=== PATIENT | female | born 1950 | race Caucasian/White ===

== ENCOUNTER 2019-11-16 13:38 | Observation (INO) | payer MEDICARE, MEDICAID, SELFPAY ==
[2019-11-16] VITALS (14 sets, daily range): BP systolic 81–132; BP diastolic 39–68; PULSE 60–86; RESP 15–18; TEMP 36.8–36.9; O2SAT 94–100
--- NOTE | 2019-11-16 13:58 | CT_ITS ---
PROCEDURE: CT HEAD/BRAIN WO CON CLINICAL INDICATION: ams Altered mental status, altered level of consciousness, confusion, disorientation COMPARISON: CT HDWO CT HEAD W/O CONTRAST from 10/18/2014 TECHNIQUE: Axial images obtained. All CT scans at the facility use one or more dose reduction, viz: automated exposure control, ma/kV adjustment per patient size (including targeted exams where dose is matched to indication, i.e. head), or iterative reconstruction technique. FINDINGS: No midline shift, mass effect, intracranial hemorrhage, hydrocephalus, or extra-axial fluid collection is evident. There is generalized atrophy with hypoattenuation of the periventricular white matter consistent with microangiopathic changes. The calvarium has an unremarkable appearance. No mastoid effusion. There is mild mucosal thickening of the sphenoid sinus on the right IMPRESSION: No acute intracranial finding Dictated by: Ananda Vázquez MD 11/16/2019 14:54 Ananda Vázquez MD in [place] 11/16/2019 14:54
--- NOTE | 2019-11-16 14:00 | XR_ITS ---
PROCEDURE: XR CHEST PORTABLE CLINICAL HISTORY: cough COMPARISON: CR CXR CHEST(2 VIEWS-NOT PORTABLE) from 09/18/2014 FINDINGS: The cardiomediastinal silhouette and pulmonary vascularity are within normal limits. The lungs are clear without infiltrates, suspicious nodules, or pleural effusions. Lower thoracic curvature convex right. Mild degenerative changes of the shoulders IMPRESSION: No acute findings. Dictated by: Ananda Vázquez MD 11/16/2019 15:48 Ananda Vázquez MD in [place] 11/16/2019 15:48
--- NOTE | 2019-11-16 14:00 | HMH.EDGENADL ---
ED Disposition Clinical Impression: Altered mental status Qualifiers: Altered mental status type: delirium Qualified Code(s): R41.0 - Disorientation, unspecified Salicylate poisoning Qualifiers: Encounter type: initial encounter Injury intent: accidental or unintentional Qualified Code(s): T39.091A - Poisoning by salicylates, accidental (unintentional), initial encounter Disposition: Xfer Other Condition on Discharge: Critical Instructions: DI for Altered Mental Status Referrals: Prudencio Varner MD [Staff Physician] - Time of Disposition: 16:47 - Critical Care Critical Care Time: No Attestation: On 11/16/19, the high probability of a clinically significant, sudden or life threatening deterioration of the following system(s) required my full and direct attention, intervention and personal management. The time I documented below is in addition to time spent performing reported procedures but includes the following listed in this critical care notation. Medical Decision Making - Medical Records Medical records reviewed: Yes: I reviewed the patient's medical records. - Cain Inquiry Pt receiving controlled substance: No Vital Signs: 11/16/19 13:51 11/16/19 14:32 11/16/19 15:33 Temperature 98.5 F Temperature Source Oral Pulse Rate [Right Brachial] 74 70 72 Respiratory Rate 17 16 Blood Pressure [Right Arm] 111/57 L 117/46 L 109/57 L Blood Pressure Mean [Right Arm] 75 69 74 Blood Pressure Source [Right Arm] Automatic Cuff Automatic Cuff Automatic Cuff Blood Pressure Position [Right Arm] Sitting Sitting Sitting 02 Sat by Pulse Oximetry 99 100 99 Oxygen Delivery Method Room Air Room Air Room Air 11/16/19 15:55 11/16/19 16:34 Temperature Temperature Source Pulse Rate [Right Brachial] 85 79 Respiratory Rate Blood Pressure [Right Arm] 102/55 L 93/50 L Blood Pressure Mean [Right Arm] 70 64 Blood Pressure Source [Right Arm] Automatic Cuff Automatic Cuff Blood Pressure Position [Right Arm] Sitting Sitting 02 Sat by Pulse Oximetry 98 97 Oxygen Delivery Method Room Air - Lab Data Lab Results 11/16/19 13:54: WBC 9.3, RBC 4.17 L, Hgb 13.1, Hct 40.3, MCV 96.6, MCH 31.4 H, MCHC 32.5, RDW 15.0, Plt Count 306, MPV 7.8, Neut % (Auto) 71.5, Lymph % (Auto) 20.7, [place] % (Auto) 7.1, Eos % (Auto) 0.3, Baso % (Auto) 0.5, Neut # (Auto) 6.6, Lymph # (Auto) 1.9, [place] # (Auto) 0.7, Eos # (Auto) 0.0, Baso # (Auto) 0.0 11/16/19 13:54: Sodium 132 L, Potassium 3.8, Chloride 99, Carbon Dioxide 18 L, Anion Gap 18.8 H, BUN 33 H, Creatinine 1.20 H, Estimated Creat Clear 39, Estimated GFR 45 L, Est GFR ( Amer) 54 L, Glucose 94, Calcium 8.9, Total Bilirubin 0.3, AST 43 H, ALT 13, Alkaline Phosphatase 78, Total Protein 7.0, Albumin 4.0, Globulin 3.0, Albumin/Globulin Ratio 1.3, Lipase 96, TSH 0.73, Salicylates 48.7 H*, Acetaminophen < 10 L 11/16/19 13:54: Lactate 0.7 11/16/19 13:54: Plasma/Serum Alcohol < 10 11/16/19 13:54: SARS-CoV-2 IgG Ab (Rapid) Negative, SARS-CoV-2 IgM Ab (Rapid) Negative 11/16/19 13:58: VBG pH 7.29 L, VBG pCO2 31.1 L, VBG pO2 58.5 H, VBG HCO3 14.5 L, VBG Total CO2 15.4 L, VBG O2 Saturation 88.7 H, VBG Base Excess -12.2 L 11/16/19 14:08: Urine Color Yellow, Urine Appearance Clear, Urine pH 5.5, Ur Specific [place] 1.025, Urine Protein Negative, Urine Glucose (UA) Negative, Urine Ketones 2+, Urine Blood Trace-i, Urine Nitrate Negative, Urine Bilirubin 1+ A, Urine Urobilinogen 0.2, Ur Leukocyte Esterase Negative, Urine RBC 3-5, Urine WBC 3-5, Ur Squamous Epith Cells Occasional 11/16/19 14:08: Urine Opiates Screen Negative, Urine Methadone Screen Negative, Ur Barbituates Screen Negative, Ur Phencyclidine Scrn Negative, Ur Amphetamines Screen Negative, U Benzodiazepines Scrn Negative, Urine Cocaine Screen Negative, U Marijuana (THC) Screen Negative 11/16/19 18:01: Salicylates 45.9 H* Result diagrams: 11/16/19 13:54 11/16/19 13:54 Orders (Tests/Meds): ED MEDICATIONS Generic Name Dose Route Start Last
[2019-11-16 14:12] LABS: Basophils % 0.5 % (0.1-2.0); Eosinophils % 0.3 % (0.1-12.0); Hematocrit 40.3 % (37.0-47.0); Hemoglobin 13.1 g/dL (12.2-16.2); Lymphocytes # 1.9 K/mm3 (0.7-4.5); Lymphocytes % 20.7 % (10-50); Mean Corpuscular HGB Conc 32.5 g/dL (31.8-35.4); Mean Corpuscular Hemoglobin 31.4 pg (27.0-31.2); Mean Corpuscular Volume 96.6 fl (81-99); Mean Platelet Volume 7.8 fl (7.4-10.4); Monocytes # 0.7 K/mm3 (0.1-1.0); Monocytes % 7.1 % (1.7-9.3); Neutrophils # 6.6 K/mm3 (1.8-7.8); Neutrophils % 71.5 % (37.0-80.0); Platelet Count 306 K/mm3 (142-424); Red Blood Count 4.17 M/mm3 (4.20-5.40); White Blood Count 9.3 K/mm3 (4.8-10.8)
[2019-11-16 14:13] LABS: Microscopic, Urine URINE MICROSCOPIC (MICROSCOPIC)
[2019-11-16 14:14] LABS: Appearance,Urine CLEAR (Clear); Blood, Urine TRACE-I (Negative); Color,Urine YELLOW (Yellow); Glucose,Urine (UA) Negative (Negative); Ketones,Urine 2+ (Negative); Leukocyte Esterase,Urine Negative (Negative); Nitrate,Urine Negative (Negative); PH,Urine 5.5 (5.0-8.5); Protein,Urine Negative (Negative); Specific Gravity, Urine 1.025 (1.005-1.030); Urobilinogen,Urine 0.2 EU/dl (0.2)
[2019-11-16 14:20] LABS: Chloride 99 mmol/L (98-107)
[2019-11-16 14:21] LABS: Potassium 3.8 mmoL/L (3.5-5.1); Sodium 132 mmol/L (136-145)
[2019-11-16 14:23] LABS: Alanine Aminotransferase 13 U/L (12-78); Aspartate Amino Transferase 43 U/L (14-36); Blood Urea Nitrogen 33 mg/dl (7-17); Creatinine Clearance Estimated 39 mL/min (50-200); Estimated Glomerular Filt Rate 45 ml/min (>60); GFR (African American) 54 ML/MIN (>60); Lactic Acid 0.7 mmol/L (0.7-2.1)
[2019-11-16 14:24] LABS: Albumin/Globulin Ratio 1.3 (1.1-1.8); Alkaline Phosphatase 78 U/L (38-126); Anion Gap 18.8 mEq/L (5-15); Bilirubin,Total 0.3 mg/dl (0.2-1.3); Calcium 8.9 mg/dl (8.4-10.2); Carbon Dioxide 18 mmol/L (22.0-30.0); Ethyl Alcohol < 10 mg/dl (0-10); Glucose 94 mg/dl (74-100); Lipase 96 U/L (23-300)
[2019-11-16 14:25] LABS: Amphetamine/Metha Screen,Urine Negative ng/ml (<1000); Barbiturates Screen,Urine Negative ng/ml (<200)
[2019-11-16 14:26] LABS: Benzodiazepines Screen,Urine Negative ng/ml (<200); Bilirubin,Urine 1+ (Negative)
[2019-11-16 14:27] LABS: Cannabinoid Screen,Urine Negative ng/ml (<50); Cocaine Screen,Urine Negative ng/ml (<300)
[2019-11-16 14:28] LABS: Methadone Screen,Urine Negative ng/ml (<300)
[2019-11-16 14:29] LABS: Opiate Screen,Urine Negative ng/ml (<300)
[2019-11-16 14:30] LABS: Phencyclidine Screen,Urine Negative ng/ml (<25)
[2019-11-16 14:31] LABS: Squamous Epithelial Cell,Urine Occasional #/hpf (0-5)
--- NOTE | 2019-11-16 14:31 | PC.NURSE ---
Rad at bedside
[2019-11-16 14:35] LABS: Acetaminophen < 10 ug/ml (10-30); Salicylate 48.7 mg/dL (2.0-20.0)
[2019-11-16 14:56] LABS: VBG Base Excess -12.2 mmol/L (-2.4-2.3); VBG HCO3 14.5 mmol/L (23-30); VBG Oxygen Saturation 88.7 % (50-70); VBG PCO2 31.1 mmol/L (35-51); VBG PH 7.29 mmol/L (7.31-7.41); VBG PO2 58.5 mmol/L (28-40); VBG Total CO2 15.4 mmol/L (23-27)
[2019-11-16 14:57] LABS: Thyroid Stimulating Hormone 0.73 uIU/mL (0.465-4.68)
--- NOTE | 2019-11-16 17:15 | PC.NURSE ---
TALKED WITH KIMO FROM POISON CONTROL - ADVISED HER SALICYLATE LEVEL WAS TOXIC AND PT NEEDED TO BE DIALYZED. ADVISED TO START PT ON BI CARB DRIP WITH POT AND DEXTROSE, GIVE AN AMP OF D50 AND RECHECK ASPIRIN LEVEL TWO HOURS FROM THE FIRST ONE.
--- NOTE | 2019-11-16 17:18 | PC.NURSE ---
Pt up to restroom
[2019-11-16 17:33] LABS: Coronavirus 19 IgG Antibody Negative (Negative); Coronavirus 19 IgM Antibody Negative (Negative)
--- NOTE | 2019-11-16 17:37 | PC.NURSE ---
Calling [facility] at this time.
--- NOTE | 2019-11-16 17:45 | PC.NURSE ---
Dr Ragsdale speaking with Dr Vera at this time.
--- NOTE | 2019-11-16 17:47 | PC.NURSE ---
[facility] Doc stated that pt would be 9th on the list and that there is no way they could accept her at this time. calling mandaen at this time.
--- NOTE | 2019-11-16 17:49 | PC.NURSE ---
[facility] does not have ICU beds at this time.
--- NOTE | 2019-11-16 17:51 | PC.NURSE ---
Calling at this time
--- NOTE | 2019-11-16 17:58 | PC.NURSE ---
[facility] paging ICU attending and will be returning call.
--- NOTE | 2019-11-16 18:12 | PC.NURSE ---
Pt refusing VS monitors at this time.
--- NOTE | 2019-11-16 18:27 | PC.NURSE ---
Pt's sister requested her phone number as well as her daughters phone be placed in her chart for any updates on pt. Sister: Demetria Cordero: [phone] Daughter: Elina Roberts [phone]
--- NOTE | 2019-11-16 18:28 | PC.NURSE ---
Dr Ragsdale speaking with Dr Osman at this time.
--- NOTE | 2019-11-16 18:31 | PC.NURSE ---
Dr Ragsdale spoke with Dr Osman he stated that if the repeat salicylate in out of toxic range that she does not need to be transferred but he does accept pt at Dr Ragsdale's discretion.Repeat levels should be back any time now. Will call back once levels reported.
[2019-11-16 18:40] LABS: Salicylate 45.9 mg/dL (2.0-20.0)
--- NOTE | 2019-11-16 18:47 | PC.NURSE ---
calling back at this time. Pt's levels have not changed. speaking with Dr Osman.
--- NOTE | 2019-11-16 18:57 | PC.NURSE ---
Message left for dr Osman.
--- NOTE | 2019-11-16 19:07 | PC.NURSE ---
spoke with transfer center who gave number to send facesheet and call report to after 525pm
--- NOTE | 2019-11-16 20:04 | PC.NURSE ---
tried to call [facility] for transfer report and they stated they had no runs on the book for this patient and cant come get her in a timely manner tonight and the only thing they can do for me is call for a weather check.
--- NOTE | 2019-11-16 20:08 | PC.NURSE ---
I spoke with Jessica at [facility] who said this patient does not have a bed assignment at this time. Stated they will call us when a bed becomes available.
[2019-11-16 20:29] LABS: Chloride 103 mmol/L (98-107); Potassium 3.2 mmoL/L (3.5-5.1); Sodium 134 mmol/L (136-145)
[2019-11-16 20:32] LABS: Alanine Aminotransferase 11 U/L (12-78); Albumin Level 3.2 g/dl (3.5-5.0); Albumin/Globulin Ratio 1.3 (1.1-1.8); Alkaline Phosphatase 56 U/L (38-126); Anion Gap 14.2 mEq/L (5-15); Aspartate Amino Transferase 29 U/L (14-36); Bilirubin,Total 0.2 mg/dl (0.2-1.3); Blood Urea Nitrogen 28 mg/dl (7-17); Carbon Dioxide 20 mmol/L (22.0-30.0); Creatinine Clearance Estimated 46 mL/min (50-200); Estimated Glomerular Filt Rate 62 ml/min (>60); GFR (African American) 75 ML/MIN (>60); Globulin 2.4 g/dL (1.3-3.2); Total Protein,Serum 5.6 g/dl (6.3-8.2)
[2019-11-16 20:33] LABS: Glucose 217 mg/dl (74-100)
[2019-11-16 20:45] LABS: Salicylate 37.5 mg/dL (2.0-20.0)
[2019-11-16 20:49] LABS: Calcium 7.9 mg/dl (8.4-10.2)
--- NOTE | 2019-11-16 21:27 | PC.NURSE ---
patient assigned to [id number]
--- NOTE | 2019-11-16 21:31 | PC.NURSE ---
spoke with leslie at poison control and informed her of pt being admitted here due to lack of beds available at surrounding areas. she sated to obtain a repeat UA for PH level and that if its lower than a 7-8 then we would need to increase the pts bicarb drip. she also stated to obtain a repeat VBG at this time.
--- NOTE | 2019-11-16 21:33 | PC.NURSE ---
pt admitted [place] to [facility].
[2019-11-16 21:35] LABS: Coronavirus 19 IgG Antibody Negative (Negative); Coronavirus 19 IgM Antibody Negative (Negative)
--- NOTE | 2019-11-16 21:35 | PC.NURSE ---
called Resp. for VBG
[2019-11-16 21:59] LABS: VBG Base Excess -9.8 mmol/L (-2.4-2.3); VBG HCO3 15.8 mmol/L (23-30); VBG Oxygen Saturation 98.5 % (50-70); VBG PCO2 29.3 mmol/L (35-51); VBG PH 7.35 mmol/L (7.31-7.41); VBG PO2 131.6 mmol/L (28-40); VBG Total CO2 16.7 mmol/L (23-27)
--- NOTE | 2019-11-16 22:16 | PC.NURSE ---
MD notified of intermitten hypotensive episodes at times. MD suggested the pt has pseudo-hypotension
--- NOTE | 2019-11-16 22:56 | PC.NURSE ---
repeat urine sent to lab at this time
[2019-11-16 23:03] LABS: Microscopic, Urine URINE MICROSCOPIC (MICROSCOPIC)
[2019-11-16 23:05] LABS: Appearance,Urine CLEAR (Clear); Bilirubin,Urine Negative (Negative); Blood, Urine TRACE-I (Negative); Color,Urine YELLOW (Yellow); Glucose,Urine (UA) Negative (Negative); Ketones,Urine 1+ (Negative); Leukocyte Esterase,Urine Negative (Negative); Nitrate,Urine Negative (Negative); Protein,Urine Negative (Negative); Specific Gravity, Urine 1.015 (1.005-1.030); Urobilinogen,Urine 0.2 EU/dl (0.2)
--- NOTE | 2019-11-16 23:09 | PC.NURSE ---
spoke with leslie from poison control. informed her that the pt was admitted here and that she has improved and is alert and oriented x 3 and up and ambulating independently. this nurse asked for parameters on bicarb drip since none were given.
[2019-11-16 23:24] LABS: Bacteria,Urine 1+ /lpf
--- NOTE | 2019-11-16 23:31 | PC.NURSE ---
gave report to MOHAMUD Garcia
--- NOTE | 2019-11-16 23:45 | PC.NURSE ---
SPOKE TO KIMO WITH POISON CONTROL AT THIS TIME. KIMO SUGGESTED OBTAINING Q1H UA TO DETERMINE URINE PH FOR TITRATING BICARB DRIP. URINE PH IS NEEDING TO BE 7.5-8 AND THIS RN WAS INSTRUCTED TO CALL KIMO WITH RESULTS OF URINE PH FOR FURTHER INSTRUCTIONS ON HOW TO TITRATE BICARB DRIP. KIMO ALSO SUGGESTED TO OBTAIN BMP, SALICYLATE LEVEL AND VBG Q2H. INSTRUCTED TO DC IVF'S AND TO INSERT DEAN. S/S TO MONITOR FOR ASPIRIN TOXICITY. WILL MAKE MD AWARE OF RECOMMENDATIONS.
--- NOTE | 2019-11-16 23:48 | PC.NURSE ---
SPOKE TO KIMO WITH POISON CONTROL AT THIS TIME. KIMO SUGGESTED OBTAINING Q1H UA TO DETERMINE URINE PH FOR TITRATING BICARB DRIP. URINE PH IS NEEDING TO BE 7.5-8 AND THIS RN WAS INSTRUCTED TO CALL KIMO WITH RESULTS OF URINE PH FOR FURTHER INSTRUCTIONS ON HOW TO TITRATE BICARB DRIP. KIMO ALSO SUGGESTED TO OBTAIN BMP, SALICYLATE LEVEL AND VBG Q2H. INSTRUCTED TO DC IVF'S AND TO INSERT DEAN. S/S TO MONITOR PT FOR ASPIRIN TOXICITY. WILL MAKE MD AWARE OF RECOMMENDATIONS.
--- NOTE | 2019-11-16 23:50 | PC.NURSE ---
UPDATED KIMO WITH POISON CONTROL THAT URINE PH RESULTED 6, PREVIOUS URINE PH WAS 5.5. BICARB GTT IS CURRENTLY INFUSING AT 167ML/HR PER ER STAFF. UPDATED ON GIVEN INSTRUCTIONS FROM PREVIOUS CONVERSATION BETWEEN THIS RN AND MD KIMO ORDERED UA AT 0400 TO CHECK URINE PH AND TO OBTAIN THE BMP, SALICYLATE, AND VBG AT 0400. REQUESTED THAT ORDERED IVF'S REMAIN AND STATED TO NOT INSERT DEAN CATHETER. PT IS ABLE TO AMBULATE TO AND FROM BATHROOM WELL AND NOT HAVING DIFFICULTY WITH VOIDING PER ER STAFF. KIMO SUGGESTED TO AT LEAST GET BMP, SALICYLATE, AND VBG NOW AND AT 0400. KIMO INSTRUCTED TO INCREASE BICARB GTT TO 200 ML/HR WILL UPDATE WITH KIMO'S RECOMMENDATIONS OF NEEDING TO OBTAIN LABS NOW AND AT 0400.
[2019-11-17] VITALS (13 sets, daily range): BP systolic 88–134; BP diastolic 43–63; PULSE 50–75; RESP 14–20; TEMP 36.4–36.8; O2SAT 93–98; BMI 21.2
--- NOTE | 2019-11-17 00:20 | PC.NURSE ---
patient up to floor via stretcher.
[2019-11-17 00:56] LABS: VBG PH 7.35 mmol/L (7.31-7.41)
[2019-11-17 01:06] LABS: Anion Gap 7.9 mEq/L (5-15); Blood Urea Nitrogen 23 mg/dl (7-17); Calcium 7.7 mg/dl (8.4-10.2); Carbon Dioxide 27 mmol/L (22.0-30.0); Chloride 105 mmol/L (98-107); Creatinine Clearance Estimated 49 mL/min (50-200); Estimated Glomerular Filt Rate 71 ml/min (>60); GFR (African American) 86 ML/MIN (>60); Glucose 152 mg/dl (74-100); Sodium 137 mmol/L (136-145)
[2019-11-17 01:24] LABS: Salicylate 39.3 mg/dL (2.0-20.0)
[2019-11-17 01:25] LABS: Potassium 2.9 mmoL/L (3.5-5.1)
--- NOTE | 2019-11-17 01:53 | PC.NURSE ---
KIMO WITH POISON CONTROL CALLED TO CHECK ON PATIENT. REPORTED BMP RESULTS, VBG RESULTS, AND SALICYLATES RESULT. KIMO WAS INFORMED THAT PT DID NOT RECEIVE ANY SUPPLEMENTAL POTASSIUM DESPITE ER STAFF REPORTING SUGGESTIONS TO THE ER PHYSICIAN BUT DID REPORT CRITICAL POTASSIUM TO DR. PENNY AND ORDERS WAS GIVEN TO ADMINISTER ORAL DOSE OF POTASSIUM, PT JUST RECEIVED THIS MEDICATION. KIMO IS SUGGESTIVE OF POSSIBLY NEEDING ADDITIONAL POTASSIUM AND CALCIUM SUPPLEMENTATION. REMINDED KIMO THAT LABS ARE TO BE OBTAINED AGAIN AT 0400 PER MD ORDERS. PT IS ALERT AND ORIENTED, ABLE TO COMMUNICATE APPROPRIATELY. PT IS ABLE TO AMBULATE TO AND FROM BATHROOM WITH SBA AND TOLERATE THIS WELL. VSS. WILL UPDATE DR. PENNY OF RECOMMENDATIONS WITH NOTIFICATION OF 0400 LAB RESULTS.
[2019-11-17 04:22] LABS: VBG Base Excess 6.8 mmol/L (-2.4-2.3); VBG Oxygen Saturation 84.8 % (50-70); VBG PCO2 47.1 mmol/L (35-51); VBG PH 7.44 mmol/L (7.31-7.41); VBG PO2 46.3 mmol/L (28-40); VBG Total CO2 32.4 mmol/L (23-27)
[2019-11-17 04:30] LABS: Basophils % 0.5 % (0.1-2.0); Eosinophils # 0.1 K/mm3 (0.0-0.4); Hematocrit 29.8 % (37.0-47.0); Lymphocytes # 1.1 K/mm3 (0.7-4.5); Lymphocytes % 24.1 % (10-50); Mean Corpuscular Volume 93.9 fl (81-99); Mean Platelet Volume 8.4 fl (7.4-10.4); Monocytes # 0.5 K/mm3 (0.1-1.0); Monocytes % 11.4 % (1.7-9.3); Platelet Count 182 K/mm3 (142-424); Red Blood Count 3.17 M/mm3 (4.20-5.40); Red Cell Distribution Width 14.9 % (11.5-17.5); White Blood Count 4.7 K/mm3 (4.8-10.8)
[2019-11-17 04:46] LABS: Anion Gap 2.8 mEq/L (5-15); Blood Urea Nitrogen 20 mg/dl (7-17); Calcium 7.5 mg/dl (8.4-10.2); Carbon Dioxide 33 mmol/L (22.0-30.0); Chloride 104 mmol/L (98-107); Creatinine Clearance Estimated 49 mL/min (50-200); Estimated Glomerular Filt Rate 83 ml/min (>60); GFR (African American) 101 ML/MIN (>60); Glucose 166 mg/dl (74-100); Sodium 137 mmol/L (136-145)
[2019-11-17 04:48] LABS: Potassium 2.8 mmoL/L (3.5-5.1)
[2019-11-17 04:49] LABS: Salicylate 34.2 mg/dL (2.0-20.0)
--- NOTE | 2019-11-17 05:00 | PC.NURSE ---
PT NOTED WITH O2SAT 85% RA WHILE ASLEEP. PT STATES I HAVE BEEN TOLD I DO THAT BEFORE. I AM PROBABLY USED TO THAT. PROVIDED PT WITH SUPPLEMENTAL 2LNC WHILE ASLEEP. OXYGEN REMOVED WHILE AWAKE.
[2019-11-17 05:17] LABS: Hemoglobin 9.8 g/dL (12.2-16.2)
[2019-11-17 05:50] LABS: Microscopic, Urine URINE MICROSCOPIC (MICROSCOPIC)
[2019-11-17 05:55] LABS: Appearance,Urine CLEAR (Clear); Bilirubin,Urine Negative (Negative); Blood, Urine TRACE-I (Negative); Color,Urine YELLOW (Yellow); Glucose,Urine (UA) Negative (Negative); Ketones,Urine Negative (Negative); Leukocyte Esterase,Urine Negative (Negative); Nitrate,Urine Negative (Negative); Protein,Urine Negative (Negative); Urobilinogen,Urine 0.2 EU/dl (0.2)
[2019-11-17 06:05] LABS: Bacteria,Urine 3+ /lpf
--- NOTE | 2019-11-17 06:18 | PC.NURSE ---
SPOKE TO JACKIE WITH POISON CONTROL. UPDATE PROVIDED IN REGARDS TO PT IS RECEIVING IV RUN OF 20 MEQ POTASSIUM PER MD FOR MOST RECENT POTASSIUM LEVEL RESULTING 2.8. MD DID NOT GIVE ANY ORDERS FOR CALCIUM SUPPLEMENTATION. URINE PH REMAINS AT 6 WITH BICARB DRIP INFUSING 200 ML/HR. MOST RECENT SALICYLATES LEVEL IS 34.2. JACKIE ADVISED ONCE THE SALICYLATES LEVEL IS DECREASED BELOW 30, THE BICARB DRIP COULD BE TURNED OFF BUT FOR RIGHT NOW TO KEEP DRIP AT A RATE OF 200 ML/HR. JACKIE ADVISED ADDITIONAL BMP, SALICYLATE, VBG AND UA TO BE OBTAINED 4 HOURS FROM RESULTED TIME OF MOST RECENT. TOLD DAY SHIFT RN IN REPORT OF JACKIE'S SUGGESTIONS AND TO UPDATE MD ON MORNING ROUNDS DR. PENNY INSTRUCTED TO PLACE FURTHER ORDERS.
--- NOTE | 2019-11-17 09:21 | HMH.HP ---
*Admission Date: 11/16/19 <Akosua Knight 11/17/19 09:45> *Chief complaint: Salicylate toxicity <Ryan Knight11/17/19 09:45> *History of present illness: Ms. Amanda is a previously healthy 68-year-old female with history of COPD and currently smoking 1ppd who presented to the emergency department with altered mental status and confusion. She reported some general confusion for less than a week after returning from a [address] trip with her and dog during which time she felt well. She uses CBD and BD powder for generalized arthralgia, otherwise takes no home medications. She denies alcohol or drug use, noting that she has a history of alcoholism and has been sober for 8 years. Upon arrival to the ED, she was clinically stable. 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 Poison Control was consulted and bicarbonate drip was initiated. Attempts to transfer patient to ICU bed at tertiary facility were unsuccessful due to lack of bed availability. She remained stable and labs showed improvement and so she was admitted for further evaluation and treatment. This morning, the patient is alert and oriented. Although somewhat slow to respond, she answers appropriately. She has been voiding qshift and ambulating with standby assist. She denies any pain or SOB. <Akosua Knight 11/17/19 09:45> [facility] History I have reviewed the patient's past medical history: Yes <Akosua Knight 11/17/19 09:45> Medical History: Reports:: Carotid Stenosis, Chronic Obstructive Pulmonary Disease (COPD) <Akosua Knight 11/17/19 09:45> *Have you ever received a pneumonia vaccine?: No <Akosua Knight 11/17/19 09:45> *Have you received a flu vaccine this season?: No <Akosua Knight 11/17/19 09:45> Other Medical History: Reports: Arthritis <Akosua Knight 11/17/19 09:45> Other Surgeries: Yes: Appendectomy, <Akosua Knight 11/17/19 09:45> - *Social History Last grade of school completed: Advanced degree <Akosua Knight 11/17/19 09:45> Smoking Status: Current every day smoker <Akosua Knight 11/17/19 09:45> Tobacco Type: cigarettes <Ryan Knight11/17/19 09:45> # Packs/Day (cigarettes): 1 <Ryan Knight11/17/19 09:45> Alcohol Intake: never (hx alcoholism with 8 years of sobriety) <Akosua Knight 11/17/19 09:45> Substance Use Type: former substance user <Ryan Knight11/17/19 09:45> *Occupational Status:: retired <Ryan Knight11/17/19 09:45> Household Members: significant other <Akosua Knight 11/17/19 09:45> *Travel in the last 8 weeks: Inside the [place] <Akosua Knight 11/17/19 09:45> Family Hx:: Cancer, Coronary Artery Disease, Heart Attack, Hyperlipidemia, Hypertension, Substance abuse, Alcoholism <Ryan Knight11/17/19 09:45> Review of Systems - Constitutional Reports body ache(s), Denies fatigue, Denies fever(s), Denies headache(s), Denies weakness <Ryan Knight11/17/19 09:45> - Eyes Denies change in vision <Ryan Knight11/17/19 09:45> - ENT Denies nasal congestion, Denies post nasal drip, Denies sinus pain, Denies sinus pressure, Denies sore throat <Ryan Knight11/17/19 09:45> - *Cardiovascular Denies chest pain, Denies chest pain at rest, Denies chest pain with activity, Denies shortness of breath, Denies shortness of breath with activity, Denies generalized swelling <Akosua Knight 11/17/19 09:45> - *Respiratory Reports cough, Denies chest congestion, Denies shortness of breath, Denies shortness of breath with activity <Ryan Knight11/17/19 09:45> - *Gastrointestinal Denies abdominal pain, Denies constipation, Denies heartburn, Denies loose stools, Denies nausea, Denies vomiting <Akosua Knight 11/17/19 09:45> - *Genitourinary Denies difficulty urinating <Akosua Knight 11/17/19 09:45> - *Musculoskeletal Reports joint pain, Denies abnormal walking, Denies muscle weakness <Akosua Knight - 11/17/19 09:45> - Integumentary/Breasts Denies rash <Akosua Knight - 11/17/19 09:45> - *Neurologic Reports behavioral changes,
--- NOTE | 2019-11-17 09:35 | HMH.PHAVTE ---
[facility] Pharmacy VTE Monitoring - Patient Demographics Admission date: 11/17/19 Report Date: 11/17/19 Time: 09:35 Allergies/Adverse Reactions: Patient Allergies No Known Allergies Allergy (Unverified 01/26/17 14:46) Height: 1.65 m Weight: 57.72 kg Patient Problems: Current Active Problems Altered mental status (Acute) Salicylate poisoning (Acute) - VTE Risk Labs: VTE Related Lab Results Hgb 9.8 g/dL (12.2-16.2) L D 11/17/19 04:15 Hct 29.8 % (37.0-47.0) L 11/17/19 04:15 Plt Count 182 K/mm3 (142-424) D 11/17/19 04:15 BUN 20 mg/dl (7-17) H 11/17/19 04:15 Creatinine 0.70 mg/dl (0.52-1.04) 11/17/19 04:15 Estimated Creat Clear 49 mL/min (50-200) 11/17/19 04:15 Was VTE Risk Assessment Performed: Yes VTE Score: 4 VTE Risk Level: Low Risk Clinical Trial Participant: No - Prophylaxis VTE Prophylaxis Ordered?: Yes Types of VTE Prophylaxis: TEDS Knee High Location of Applied Device: Not Applicable
[2019-11-17 10:14] LABS: Chloride 99 mmol/L (98-107); Sodium 138 mmol/L (136-145)
[2019-11-17 10:17] LABS: Anion Gap 5.9 mEq/L (5-15); Blood Urea Nitrogen 18 mg/dl (7-17); Calcium 7.9 mg/dl (8.4-10.2); Carbon Dioxide 36 mmol/L (22.0-30.0); Creatinine Clearance Estimated 49 mL/min (50-200); Estimated Glomerular Filt Rate 99 ml/min (>60); GFR (African American) 120 ML/MIN (>60); Glucose 131 mg/dl (74-100)
[2019-11-17 10:18] LABS: Salicylate 25.3 mg/dL (2.0-20.0)
[2019-11-17 10:19] LABS: Hematocrit 32.1 % (37.0-47.0); Hemoglobin 10.6 g/dL (12.2-16.2); Potassium 2.9 mmoL/L (3.5-5.1)
--- NOTE | 2019-11-17 11:38 | PC.NURSE ---
PT SALICYLATE LEVEL CAME BACK AT 25.3. CALLED AND STATED SINCE THE LEVEL IS BELOW 30 THE BICARB DRIP CAN BE STOPPED.
--- NOTE | 2019-11-17 17:29 | PC.NURSE ---
PT IS RESTING IN BED. RECEIVED ONE DOSE OF TYLENOL FOR DISCOMFORT THIS SHIFT. BP HAS BEEN LOW BUT ACCORDING TO PT SHE STATES SHE HAS NEVER HAD ELEVATED BP. PT HAS BEEN AMBULATING TO THE BATHROOM WITH STANDBY ASSIST. ALERT AND ORIENTED X4. LUNG SOUNDS CLEAR. BOWEL SOUNDS NORMAL. PT STATES HER LAST BOWEL MOVEMENT WAS YESTERDAY. WILL CONTINUE TO MONITOR.
--- NOTE | 2019-11-17 20:53 | PC.NURSE ---
She is A&OX4. Denies any pain. She denies any SOA. Continues on RA. Reports that she ambulates independently. States her last BM was on 11/17/19. She voices excitement over tomorrow being her birthday and the potential of being discharged home. VSS.
[2019-11-18] VITALS: PULSE 60
[2019-11-18 00:09] VITALS: BP 113/57; PULSE 64; RESP 16; TEMP 37.1; O2SAT 92
--- NOTE | 2019-11-18 01:28 | PC.NURSE ---
No acute changes. She has been sleeping.
--- NOTE | 2019-11-18 02:49 | PC.NURSE ---
called with bed availability. Dr. Alfonso notified about bed and pt supposed to d/c in the morning; stated she no longer needs be at . notified that bed is no longer needed.
[2019-11-18 04:00] VITALS: PULSE 70
[2019-11-18 04:06] VITALS: BP 122/58; PULSE 68; RESP 18; TEMP 36.9; O2SAT 93
[2019-11-18 05:20] VITALS: BMI 23.1
[2019-11-18 06:26] LABS: Chloride 109 mmol/L (98-107); Potassium 4.5 mmoL/L (3.5-5.1); Sodium 139 mmol/L (136-145)
[2019-11-18 06:27] LABS: Basophils # 0.1 K/mm3 (0-0.2); Basophils % 0.8 % (0.1-2.0); Eosinophils # 0.1 K/mm3 (0.0-0.4); Eosinophils % 0.8 % (0.1-12.0); Hematocrit 33.7 % (37.0-47.0); Hemoglobin 11.1 g/dL (12.2-16.2); Lymphocytes # 1.7 K/mm3 (0.7-4.5); Lymphocytes % 27.5 % (10-50); Mean Corpuscular HGB Conc 32.8 g/dL (31.8-35.4); Mean Corpuscular Hemoglobin 31.8 pg (27.0-31.2); Mean Platelet Volume 8.2 fl (7.4-10.4); Monocytes # 0.5 K/mm3 (0.1-1.0); Monocytes % 8.1 % (1.7-9.3); Neutrophils # 3.9 K/mm3 (1.8-7.8); Neutrophils % 62.7 % (37.0-80.0); Platelet Count 203 K/mm3 (142-424); Red Blood Count 3.48 M/mm3 (4.20-5.40); White Blood Count 6.2 K/mm3 (4.8-10.8)
[2019-11-18 06:29] LABS: Anion Gap 3.5 mEq/L (5-15); Blood Urea Nitrogen 15 mg/dl (7-17); Calcium 8.1 mg/dl (8.4-10.2); Carbon Dioxide 31 mmol/L (22.0-30.0); Creatinine Clearance Estimated 53 mL/min (50-200); Estimated Glomerular Filt Rate 122 ml/min (>60); GFR (African American) 148 ML/MIN (>60); Glucose 87 mg/dl (74-100)
[2019-11-18 06:30] LABS: Salicylate 4.3 mg/dL (2.0-20.0)
[2019-11-18 07:48] VITALS: BP 145/67; PULSE 78; RESP 18; TEMP 36.4; O2SAT 92
--- NOTE | 2019-11-18 08:29 | HMH.ACPN2 ---
Internal Medicine - PN: Subj *Date: 11/18/19 *Time: 08:29 Interval history: Patient feels much better today and is anxious to go home. Exam Vital signs and Labs for Last 24 Hours: Temp Pulse Resp BP Pulse Ox 97.5 F L 78 18 145/67 H 92 L 11/18/19 07:48 11/18/19 07:48 11/18/19 07:48 11/18/19 07:48 11/18/19 07:48 Laboratory Results - last 24 hr 11/17/19 10:00: Hgb 10.6 L, Hct 32.1 L 11/17/19 10:00: Sodium 138, Potassium 2.9 L*, Chloride 99, Carbon Dioxide 36 H, Anion Gap 5.9, BUN 18 H, Creatinine 0.60, Estimated Creat Clear 49, Estimated GFR 99, Est GFR ( Amer) 120, Glucose 131 H D, Calcium 7.9 L, Salicylates 25.3 H 11/18/19 05:40: WBC 6.2 D, RBC 3.48 L, Hgb 11.1 L, Hct 33.7 L, MCV 97.0, MCH 31.8 H, MCHC 32.8, RDW 15.0, Plt Count 203, MPV 8.2, Neut % (Auto) 62.7, Lymph % (Auto) 27.5, [place] % (Auto) 8.1, Eos % (Auto) 0.8, Baso % (Auto) 0.8, Neut # (Auto) 3.9, Lymph # (Auto) 1.7, [place] # (Auto) 0.5, Eos # (Auto) 0.1, Baso # (Auto) 0.1 11/18/19 05:40: Sodium 139, Potassium 4.5 D, Chloride 109 H, Carbon Dioxide 31 H, Anion Gap 3.5 L, BUN 15, Creatinine 0.50 L, Estimated Creat Clear 53, Estimated GFR 122, Est GFR ( Amer) 148 D, Glucose 87 D, Calcium 8.1 L, Salicylates 4.3 I & O for Last 24 hours: Intake & Output 11/15/19 11/16/19 11/17/19 11/18/19 23:59 23:59 23:59 23:59 Intake Total 3952 / 3952 1726 / 1726 Output Total 100 / 100 200 / 200 Balance 3852 / 3852 1526 / 1526 Weight 120 lb 127 lb 4 oz 139 lb 1 oz Microbiology Reports for the Last 24 Hours: Microbiology 11/17/19 04:45 Urine,Clean Catch Urine Culture - Preliminary Gram Negative Rods - Constitutional no acute distress - *Routine HEENT Exam Head: Present: normocephalic Eye: Present: EOMI, PERRL ENT: Present: mucous membranes moist - *Routine Neck Exam Present: supple. Absent: lymphadenopathy - *Routine Respiratory Exam Present: CTA bilaterally - *Routine Cardiovascular Exam Present: RRR - *Routine Abdominal Exam Present: soft, normoactive bowel sounds. Absent: tenderness - *Routine Extremities Exam Absent: cyanosis, clubbing, edema - *Routine Skin Exam Present: warm. Absent: rash - *Routine Neurological Exam Present: alert, oriented X3 Assessment and Plan (1) Altered mental status Status: Acute Qualifiers: Altered mental status type: delirium Qualified Code(s): R41.0 - Disorientation, unspecified Category: Medical Code(s): R41.82 - Altered mental status, unspecified (2) Salicylate poisoning Status: Acute Qualifiers: Encounter type: initial encounter Injury intent: accidental or unintentional Qualified Code(s): T39.091A - Poisoning by salicylates, accidental (unintentional), initial encounter Category: Medical Code(s): T39.091A - Poisoning by salicylates, accidental (unintentional), initial encounter (3) Hypokalemia Status: Acute Category: Medical Code(s): E87.6 - Hypokalemia (4) Anemia Status: Acute Category: Medical Code(s): D64.9 - Anemia, unspecified - Assessment and plan all Dx Assessment and Plan for all problems:: Labs have normalized, mental status is normal, OK for discharge home today. Pt will follow up with JENNIFER Saenz in a couple of weeks.
--- NOTE | 2019-11-18 15:04 | HMH.DCSUM ---
General - General Admission date:: 11/17/19 Discharge date: 11/18/19 HPI HPI: Ms. Amanda is a previously healthy 68-year-old female with history of COPD and currently smoking 1ppd who presented to the emergency department with altered mental status and confusion. She reported some general confusion for less than a week after returning from a [address] trip with her and dog during which time she felt well. She uses CBD and BD powder for generalized arthralgia and otherwise takes no home medications. She denied alcohol or drug use, noting that she had a history of alcoholism and had been sober for 8 years. Upon arrival to the ED, she was clinically stable. 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 Poison Control was consulted and bicarbonate drip was initiated. Attempts to transfer patient to ICU bed at tertiary facility were unsuccessful due to lack of bed availability. She remained stable and labs showed improvement and so she was admitted for further evaluation and treatment. The next morning, the patient was alert and oriented although somewhat slow to respond, she answered appropriately. She had been voiding qshift and ambulated with standby assist. She denied any pain or SOB. Hospital Course Hospital Course: Poison center was contacted in the emergency room for chronic salicylate toxicity. She was given D50 W and started on a bicarb drip containing potassium. Initially the thought was that she needed transfer for possible dialysis and further care. There were no bed available in [place]. Salicylate level was toxic at 45. Patient did improve on the drip with falling salicylate levels. Her potassium was low and she was started on IV fluids with potassium as well as p.o. potassium. On 11/17/2019 bicarb drip was stopped and potassium was replaced. 11/17 patient felt much better and was anxious to go home. She ambulated without difficulty. Salicylate level was 4.3 on this date. Potassium had improved to 4.5. Mental status was normal. Other labs had also normalized. On 11/18/2019 patient was discharged to home in stable and satisfactory condition. She was to follow-up with her PCP on 11/29/2019. Aspirin was discontinued. Other meds as per medication reconciliation sheet. Objective Vital signs: Temp Pulse Resp BP Pulse Ox 97.5 F L 78 18 145/67 H 92 L 11/18/19 07:48 11/18/19 07:48 11/18/19 07:48 11/18/19 07:48 11/18/19 07:48 Narrative: Exam Vital signs and Labs for Last 24 Hours: Temp Pulse Resp BP Pulse Ox 97.5 F L 78 18 145/67 H 92 L 11/18/19 07:48 11/18/19 07:48 11/18/19 07:48 11/18/19 07:48 11/18/19 07:48 Laboratory Results - last 24 hr 11/17/19 10:00: Hgb 10.6 L, Hct 32.1 L 11/17/19 10:00: Sodium 138, Potassium 2.9 L*, Chloride 99, Carbon Dioxide 36 H, Anion Gap 5.9, BUN 18 H, Creatinine 0.60, Estimated Creat Clear 49, Estimated GFR 99, Est GFR ( Amer) 120, Glucose 131 H D, Calcium 7.9 L, Salicylates 25.3 H 11/18/19 05:40: WBC 6.2 D, RBC 3.48 L, Hgb 11.1 L, Hct 33.7 L, MCV 97.0, MCH 31.8 H, MCHC 32.8, RDW 15.0, Plt Count 203, MPV 8.2, Neut % (Auto) 62.7, Lymph % (Auto) 27.5, [place] % (Auto) 8.1, Eos % (Auto) 0.8, Baso % (Auto) 0.8, Neut # (Auto) 3.9, Lymph # (Auto) 1.7, [place] # (Auto) 0.5, Eos # (Auto) 0.1, Baso # (Auto) 0.1 11/18/19 05:40: Sodium 139, Potassium 4.5 D, Chloride 109 H, Carbon Dioxide 31 H, Anion Gap 3.5 L, BUN 15, Creatinine 0.50 L, Estimated Creat Clear 53, Estimated GFR 122, Est GFR ( Amer) 148 D, Glucose 87 D, Calcium 8.1 L, Salicylates 4.3 I & O for Last 24 hours: Intake & Output 11/15/19 11/16/19 11/17/19 11/18/19 23:59 23:59 23:59 23:59 Intake Total 3952 / 3952 1726 / 1726 Output Total 100 / 100 200 / 200 Balance 3852 / 3852 1526 / 1526 Weight 120 lb 127 lb 4 oz 139 lb 1 oz Microbiology Reports for the Last 24 Hours: Microbiology 11/17/19 04:45 Urine,Clean Catch Urine Culture - Prelimi
== END 2019-11-18 10:26 | disposition home or self-care (01) ==
LOC: ER 19:54 → 2ND 21:36
PROVIDERS: Emergency Medicine; Family Medicine; Admitting Provider Family Medicine; Emergency Provider Emergency Medicine; PCP Family Medicine; Visit Provider Family Medicine
DX: R41.0 Disorientation, unspecified (principal); T39.015A Adverse effect of aspirin, initial encounter; E87.6 Hypokalemia; D64.9 Anemia, unspecified; Z72.0 Tobacco use
CPT/HCPCS: 36415; 70450; 71045; 80048; 80053; 80305; 80329; 81001; 82803; 83605; 83690; 83735; 84443; 85014; 85018; 85025; 86328; 87040; 87086; 87088; 87186; 96365; 96366; 96367; 96375; 99284; G0378

== ENCOUNTER → 2020-05-14 10:57 | Outpatient (CLI) | payer MEDICARE, MEDICAID, SELFPAY ==
--- NOTE | 2020-05-14 13:06 | CT_ITS ---
PROCEDURE: CT LUNG SCREENING CLINICAL INDICATION: H/O NICOTINE DEPENDENCE Recently quit smoking half a year ago 50 pack year smoking history copd No prior. COMPARISON: No exams were available for comparison TECHNIQUE: The exam was performed on a GE Telx Speed [address] scanner using 2.90 mGy CTDI. A low dose helical CT CHEST was performed on a multi-detector scanner. All CT scans at the facility use one or more dose reduction, viz: automated exposure control, ma/kV adjustment per patient size (including targeted exams where dose is matched to indication, i.e. head), or iterative reconstruction technique. The LDCT was performed in a facility that meets the criteria for the screening program. Data regarding this exam was submitted to ACR which is an approved registry. The order for this exam indicates that it came as a result of a lung cancer screening counseling shard decision-making visit that included all the elements required of such a visit including smoking cessation. The radiologist interpreting this exam meets the CMS criteria for the LDCT lung cancer screening program. The exam is reported using the Lung-RADS classification scale and reported to the ACR registry. NOTE: This study was performed for the specific purposes of lung cancer screening and is not an alternative to diagnostic chest CT. RADIATION DOSE: CTDI vol(CT dose Index-volume) = 2.90mG DLP (Dose Length Product) = 96.38 mGcm FINDINGS: COPD with biapical scarring. 6 mm noncalcified nodule right lower lobe posteriorly in the subpleural region image 41. Calcified granuloma right lower lobe. Fissural nodule of the right minor fissure medially 4 mm. Subpleural 2 mm nodule right lower lobe image 45. 3 mm subpleural nodule right lower lobe image 47. Faint ground-glass infiltrate in the left upper lobe anteriorly. Mild diffuse bronchial thickening.. Mild atelectatic changes in the lung bases OTHER FINDINGS: Coronary artery calcifications. Small nodes in the right axilla. There is minimal wedging involving T6 which may be old. IMPRESSION: Lung-RADS Category 3 Probably Benign Follow-up: [address] Chest with contrast. There is also a small area ground-glass infiltrate in the left upper lobe Dictated by: Ananda Vázquez MD 05/18/2020 19:32 Ananda Vázquez MD in [place] 05/18/2020 19:32
== END ==
PROVIDERS: PCP Family Medicine; Visit Provider Family Medicine
DX: R06.00 Dyspnea, unspecified (principal); F17.210 Nicotine dependence, cigarettes, uncomplicated; R06.89 Other abnormalities of breathing
CPT/HCPCS: 71271; 94060

== ENCOUNTER → 2020-08-23 08:44 | Outpatient (CLI) | payer MEDICARE, MEDICAID, SELFPAY ==
--- NOTE | 2020-08-23 08:47 | XR_ITS ---
PROCEDURE: XR KNEE RT 3V CLINICAL INDICATION: ARTHRITIS OF RT KNEE Pain COMPARISON: CR [id number] KNEE-4 OR 5 VIEWS-RT from 05/22/2016 FINDINGS: There are moderate osteoarthritic changes of the medial compartment and patellofemoral joint No fracture or dislocation. No lytic or blastic change. Other findings:None. IMPRESSION: Moderate osteoarthritic changes slightly progressed compared to the previous exam Dictated by: Ananda Vázquez MD 08/23/2020 09:26 Ananda Vázquez MD in [place] 08/23/2020 09:26
--- NOTE | 2020-08-23 08:47 | XR_ITS ---
PROCEDURE: XR HIP RT 2-3V W/PELVIS CLINICAL INDICATION: ARTHRITIS OF RT HIP Right hip pain COMPARISON: CR [id number] HIP RT 2-3V W/PELVIS IF PERFOR from 05/22/2016 FINDINGS: Osteoarthritic changes are present involving the right hip moderate in nature. These findings have progressed since 05/22/2016. A small crescentic subchondral lucency is noted in the right femoral head raising the suspicion of avascular necrosis. There is generalized vascular calcification. IMPRESSION: Moderate osteoarthritic changes of the right hip which have progressed with a small subchondral lucency which may be seen with avascular necrosis. MRI may provide further evaluation. Dictated by: Ananda Vázquez MD 08/23/2020 09:25 Ananda Vázquez MD in [place] 08/23/2020 09:25
--- NOTE | 2020-08-23 08:52 | XR_ITS ---
PROCEDURE: XR DEXA AXIAL SKELETON CLINICAL HISTORY: POST MENOPAUSAL COMPARISON: No exams were available for comparison FINDINGS: The right hip BMD is 0.566 with a T-score of -2 point. The left hip BMD is 0.49 with a T-score of -3.2. The lumbar spine BMD is 0.953 with a T-score of -0.9. IMPRESSION: This patient is considered osteoporotic according to the World Health Organization criteria. Fracture risk is high. Treatment is advised. Based on these results a follow-up exam is recommended in 1 year. Dictated by: Ananda Vázquez MD 08/23/2020 09:19 Ananda Vázquez MD in [place] 08/23/2020 09:19
== END ==
PROVIDERS: PCP Family Medicine; Visit Provider Family Medicine
DX: Z78.0 Asymptomatic menopausal state (principal); M17.11 Unilateral primary osteoarthritis, right knee; M16.11 Unilateral primary osteoarthritis, right hip
CPT/HCPCS: 73502; 73562; 77080

== ENCOUNTER → 2020-11-08 10:38 | Outpatient (CLI) | payer MEDICARE, MEDICAID, SELFPAY ==
--- NOTE | 2020-11-08 | CA_ITS ---
APPROVED REPORT EXAM: Comprehensive 2D, Doppler, and color-flow Echocardiogram [employer]ws Software Development Engineer: Kerri Brantley RVT Ht: 5 ft 5 in Wt: 142lbs BSA: 1.71 BP: 149/88 mmHg Indications: LBBB,PVC'S,COPD,SMOKER,PRE-OP 2D Dimensions LVOT 1.99 cm (M/F) 1.5-2.5 LA Volume 34.00 mL LA Volume Index 19.88 mL/m2 (M/F) 16-34 M-Mode Dimensions RVDd 1.57 cm (0.9-2.6) LA Diam 3.29 cm (1.9-4.0) LVDd 5.96 cm (3.5-5.7) Ao Diam 3.10 cm (2.0-3.7) LVDs 4.28 cm (3.5-5.7) IVSd 1.04 cm (0.6-1.1) PWd 0.86 cm (0.6-1.1) EF (Teich) 53.60% FS 28.20% EDV (Teich) 177.30 mL TAPSE 2.44 (<1.7) ESV (Teich) 82.20 mL LV Diastology E Decel Time 157.00 (160-240 msec) E/A Ratio 0.8 MED E' 6.00 (< 7 cm/sec) E'/MED E' Ratio 18.85 (>14) LAT E' 9.40 (<10 cm/sec) E/LAT E' Ratio 12.03 (>14) Mitral Valve MV E Max Ben. 113.00 (40-130 cm/s) MV A Velocity 137.00 (40-130 cm/s) E/A Ratio 0.83 MV Decel. Time 157.00 (160-240 ms) MV PHT 46.00 ms Pulmonary Valve PV Peak Velocity 72.00 (50-150 cm/s) Tricuspid Valve TR P. Velocity 292.00 cm/s RAP Estimate 10.00 mmHg RVSP 44.00 mmHg Left Ventricle Left atrium is mildly enlarged, left ventricle is normal size, mild concentric left ventricular hypertrophy, visually estimated ejection fraction 55% with no regional wall motion abnormality. Grade 1 diastolic dysfunction seen without tissue Doppler evidence of raise left atrial pressure. Right Ventricle Right atrium and right ventricle are mildly enlarged with normal contractility. Aortic Valve Aortic valve is minimally thickened and fibrosed, there is no aortic stenosis, there is trace aortic insufficiency. Mitral Valve Mitral valve has mitral annular calcification, there is no mitral stenosis, there is mild mitral regurgitation. Tricuspid Valve Tricuspid valve grossly normal, there is mild tricuspid regurgitation, calculated right ventricular systolic pressure is 43 mmHg. Pulmonic Valve Pulmonic valve is poorly visualized. Great Vessels Aortic root is normal size. Inferior vena cava is normal size with normal inspiratory collapse. Pericardium No significant pericardial effusion noted. Conclusion 1. Mild biatrial enlargement, normal left ventricular size, mild concentric left ventricular hypertrophy, visually estimated ejection fraction 55% with no regional wall motion abnormality, grade 1 diastolic dysfunction seen without tissue Doppler evidence of raise left atrial pressure. 2. Thickened and calcified aortic valve without aortic stenosis, there is trace aortic insufficiency. 3. Mild mitral and tricuspid regurgitation, calculated right ventricular systolic pressure is 43 mmHg. 4. Inferior vena cava is normal size with normal inspiratory collapse. Electronically signed by : Kelvin Wright MD 11/08/2020 12:55:21
== END ==
PROVIDERS: PCP Family Medicine; Visit Provider Family Medicine
DX: Z01.818 Encounter for other preprocedural examination (principal); I44.7 Left bundle-branch block, unspecified; I49.3 Ventricular premature depolarization
CPT/HCPCS: 93306

== ENCOUNTER → 2020-11-11 15:10 | Outpatient (CLI) | payer MEDICARE, MEDICAID, SELFPAY | PROVIDERS: PCP Family Medicine; Visit Provider Nurse Practitioner Family | DX: I49.3 Ventricular premature depolarization (principal); R00.2 Palpitations | CPT/HCPCS: 93270 ==

== ENCOUNTER → 2020-12-10 10:51 | Outpatient (CLI) | payer MEDICARE, MEDICAID, SELFPAY ==
--- NOTE | 2020-12-10 10:52 | CA_ITS ---
APPROVED REPORT Exam: Pharmacologic Technologist: Cynthia Barnett Ht: 5 ft 5 in Wt: 149 lbs BSA: 1.75 m2 HR: 69 bpm BP: 171/76 mmHg Indications: Chest pain, Claudication, CAD Medical History Medications: Gabapentin,,,,, Multivitamin,,,,, Zinc,,,,, Alendronate,,,,, Trelegy Ellipta,,,,, EvEnity,,,,, Stress Test Details Test: LEXISCAN HR Resting HR: 86 bpm Max Heart Rate (APMHR): 150.882301 bpm Max HR Achieved: 114 bpm Target HR (85% APMHR): 127.591206 bpm % of APMHR: 76.00 Recovery HR: 89 bpm BP Resting BP: 171.0/76.0 mmHg Max BP: 171.0/76.0 mmHg Recovery BP: 147.0/78.0 mmHg ECG Resting ECG: Normal sinus rhythm, PACs, PVCs, left bundle branch block vs LVH with strain pattern, right axis deviation Clinical Exercise duration: 04:12 min Highest Stage Achieved: Exercise capacity: 1.0 METs Stress ECG Conclusion Symptoms: Brief shortness of air, mild malaise. No chest pain. Arrhythmias/Ectopy: Frequent PVCs, rare PAC ST-T Changes: Exaggeration of baseline abnormalities. Conclusion: Non-diagnostic Lexiscan stress. Myoview images reported separately. Electronically signed by : Kelvin Wright MD 12/10/2020 21:59:08
--- NOTE | 2020-12-10 10:52 | CA_ITS ---
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 Study suggests 50-69% stenosis of the left internal cartoid artery. Antegrade flow seen bilateral vertebral arteries. 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 Study suggests 50-69% stenosis of the left internal cartoid artery. Antegrade flow seen bilateral vertebral arteries. Electronically signed by : Ananda Vázquez MD 12/10/2020 18:22:37
--- NOTE | 2020-12-10 10:54 | US_ITS ---
APPROVED REPORT Exam Type: Ankle to Brachial Index Senior Hr Generalist: Rufina Fernández RT(R) Indications Current Smoker Preop clearance right hip surgery Pressures/Indices Right Indices Left Indices Brachial 135.00 mmHg Brachial 133.00 mmHg Low Thigh 171.00 mmHg 1.27 Low Thigh 158.00 mmHg 1.17 Calf 200.00 mmHg 1.48 Calf 172.00 mmHg 1.27 Ankle(PT) 185.00 mmHg 1.37 Ankle(PT) 177.00 mmHg 1.31 Ankle(DP) 179.00 mmHg 1.33 Ankle(DP) 177.00 mmHg 1.31 Digit 148.00 mmHg 1.10 Digit 129.00 mmHg 0.96 Findings RT PARRIS=1.37 LT PARRIS=1.31 RT TBI=1.10 LT TBI=0.96 Normal pulses Normal waveforms Conclusion RT PARRIS=1.37 LT PARRIS=1.31 RT TBI=1.10 LT TBI=0.96 Normal pulses Normal waveforms Elevated ABIs suggesting vessel hardening Electronically signed by : Ananda Vázquez MD 12/11/2020 07:19:00
--- NOTE | 2020-12-10 11:31 | NM_ITS ---
APPROVED REPORT Exam: Nuclear Stress Test Indication: palpitations..abn ecg..pre-op Patient Location: Outpatient Stress Tech: Cynthia Barnett NM Tech:Shena Cramer, ARRT, RT (R)(N) Ht: 5 ft 5 in Wt: 145 lbs Bra Size: 34 b HR: 69 bpm BP: 171/76 mmHg BSA: 1.73 m2 BMI: 24.1 History: palpitations..abn ecg..pre-op Procedure: Patient received a 0.4 mg of intravenous Lexiscan, resting heart rate 69 bpm, resting blood pressure 171/76 mmHg, with Lexiscan maximum heart rate achived was 105 bpm which is 85 % of the maximum predicted heart rate and blood pressure was 153/83 mmHg. With Lexiscan, patient denied any complaint of chest pain. patient said she is not able to lay on her belly Electrocardiogram Resting electrocardiogram shows sinus rhythm intraventricular conduction delay, left ventricular hypertrophy with strain pattern, with Lexiscan there is less than 1.[address] segment depression noted from the baseline EKG, frequent ectopic beats were present throughout the study. The EKG portion of the Lexiscan is nondiagnostic. Cardiac Stress and Resting SPECT Images: Cardiac Stress and Resting SPECT images were obtained using technetium 99m Myoview 31.0 mCi stress and 10.67 mCi at rest. Gated SPECT for analysis of segmental wall motion and calculation of the ejection fraction also done. Prone images were also obtained. Cardiac stress and resting SPECT images show uniform myocardial activity without segmental perfusion abnormality, computer derived ejection fraction is 40% with no regional wall motion abnormality, however during the study frequent ectopic beats were present which may underestimate the ejection fraction by gated SPECT. Right ventricle is normal size and contractility. Conclusion: 1. The EKG portion of the Lexiscan Myoview is nondiagnostic. 2. No scintigraphic evidence of reversible ischemia seen, computer derived ejection fraction 40% with no regional wall motion abnormality, however during the study frequent ectopic beats were present which may underestimate the ejection fraction by gated SPECT. Right ventricle is normal size and contractility. An echocardiogram will be better modality to evaluate left ventricular systolic function in this patient. Electronically signed by : Kelvin Wright MD 12/11/2020 06:38:46
--- NOTE | 2020-12-10 13:42 | HMH.ITSHM ---
Current Home Medications as stated by this patient Shea Amanda or patient portal representative. []ZINC MULTIVITAMIN GABAPENTIN FLUTICASONE ASA ALENDRONATE
== END ==
PROVIDERS: PCP Family Medicine; Visit Provider Nurse Practitioner Family
DX: I25.118 Atherosclerotic heart disease of native coronary artery with other forms of angina pectoris (principal); R06.00 Dyspnea, unspecified; R94.31 Abnormal electrocardiogram [ECG] [EKG]; Z01.810 Encounter for preprocedural cardiovascular examination; I73.9 Peripheral vascular disease, unspecified; I65.23 Occlusion and stenosis of bilateral carotid arteries
CPT/HCPCS: 78452; 93017; 93880; 93923; A9502; J2785

== ENCOUNTER → 2021-06-04 14:28 | Outpatient (CLI) | payer MEDICARE, SELFPAY ==
--- NOTE | 2021-06-04 14:45 | XR_ITS ---
FINAL REPORT CLINICAL HISTORY: rt hip pain COMPARISON: August 23, 2020 FINDINGS: 2 views of the right hip and an AP pelvis were obtained. There is no acute fracture or dislocation. There is advanced narrowing of the right hip joint space with subchondral sclerosis and osteophyte formation. There is mild narrowing of the left hip joint space. There is indentation of the articular surface of the right femoral head that may be due to mild underlying avascular necrosis. IMPRESSION: Advanced osteoarthritis of the right hip with possible mild underlying avascular necrosis. Findings are progressed since the prior exam. Reviewed, Interpreted and Dictated by Yang Still MD Transcribed by Pérez Hidalgo Authenticated by Yang Still MD on 06/04/2021 06:04:18 PM [facility]
--- NOTE | 2021-06-04 14:45 | CT_ITS ---
FINAL REPORT CLINICAL HISTORY: current smoker COMPARISON: May 14, 2020 FINDINGS: Low-Dose Chest CT CTDI vol (mGy): 2.90 DLP (mGy-cm): 93.25 Axial images were obtained from the lung apex to the mid abdomen by computed tomography. Low-dose protocol was utilized. FINDINGS: CHEST: There is no axillary adenopathy. There is no mediastinal adenopathy. There is a calcified right paratracheal and right hilar lymph node. The heart is proper size. There is no pericardial or pleural effusion. Limited images of the upper abdomen are unremarkable. Lung window images demonstrate a stable noncalcified 6 mm nodule in the posterior right lower lobe on image 40 of series 4. There are several other tiny nodules in both upper lobes which are stable. IMPRESSION: Stable 6 mm pleural based nodule in the right lower lobe. Lung RADS category 2. Recommend 12 month follow-up low-dose chest CT. Reviewed, Interpreted and Dictated by Yang Still MD Transcribed by Yaneli Wilson Authenticated by Yang Still MD on 06/04/2021 06:04:[address] [facility]
== END ==
PROVIDERS: PCP Family Medicine; Visit Provider Family Medicine
DX: M25.551 Pain in right hip (principal); Z87.891 Personal history of nicotine dependence; Z12.2 Encounter for screening for malignant neoplasm of respiratory organs
CPT/HCPCS: 71271; 73502

== ENCOUNTER → 2021-06-20 16:16 | Outpatient (CLI) | payer MEDICARE, MEDICAID, SELFPAY ==
[2021-06-20 16:30] LABS: Microscopic, Urine URINE MICROSCOPIC (MICROSCOPIC)
[2021-06-20 17:07] LABS: Basophils # 0.1 K/mm3 (0-0.2); Eosinophils # 0.2 K/mm3 (0.0-0.4); Hematocrit 39.2 % (37.0-47.0); Hemoglobin 12.3 g/dL (12.2-16.2); Lymphocytes % 27.2 % (10-50); Mean Corpuscular HGB Conc 31.3 g/dL (31.8-35.4); Mean Corpuscular Hemoglobin 26.9 pg (27.0-31.2); Mean Corpuscular Volume 85.9 fl (81-99); Mean Platelet Volume 8.4 fl (7.4-10.4); Monocytes # 0.4 K/mm3 (0.1-1.0); Monocytes % 5.4 % (1.7-9.3); Neutrophils # 4.8 K/mm3 (1.8-7.8); Neutrophils % 64.5 % (37.0-80.0); Platelet Count 429 K/mm3 (142-424); Red Blood Count 4.56 M/mm3 (4.20-5.40); Red Cell Distribution Width 20.5 % (11.5-17.5); White Blood Count 7.4 K/mm3 (4.8-10.8)
[2021-06-20 17:11] LABS: Appearance,Urine CLEAR (Clear); Bilirubin,Urine Negative (Negative); Blood, Urine Negative (Negative); Color,Urine YELLOW (Yellow); Glucose,Urine (UA) Negative (Negative); Ketones,Urine Negative (Negative); Leukocyte Esterase,Urine Negative (Negative); Nitrate,Urine POSITIVE (Negative); Protein,Urine Negative (Negative); Specific Gravity, Urine <= 1.005 (1.005-1.030); Urobilinogen,Urine 0.2 EU/dl (0.2)
[2021-06-20 17:19] LABS: Chloride 102 mmol/L (98-107); Sodium 134 mmol/L (136-145)
[2021-06-20 17:22] LABS: Alanine Aminotransferase 12 U/L (12-78); Albumin Level 3.8 g/dl (3.5-5.0); Albumin/Globulin Ratio 1.5 (1.1-1.8); Alkaline Phosphatase 85 U/L (38-126); Aspartate Amino Transferase 24 U/L (14-36); Bilirubin,Total 0.2 mg/dl (0.2-1.3); Blood Urea Nitrogen 11 mg/dl (7-17); Carbon Dioxide 26 mmol/L (22.0-30.0); Estimated Glomerular Filt Rate 99 ml/min (>60); GFR (African American) 120 ML/MIN (>60); Globulin 2.5 g/dL (1.3-3.2); Total Protein,Serum 6.3 g/dl (6.3-8.2)
[2021-06-20 17:23] LABS: Calcium 9.9 mg/dl (8.4-10.2); Glucose 108 mg/dl (74-100)
[2021-06-20 17:58] LABS: Bacteria,Urine 4+ /lpf; Squamous Epithelial Cell,Urine Occasional #/hpf (0-5)
== END ==
PROVIDERS: PCP Family Medicine; Visit Provider Orthopaedic Surgery
DX: M16.11 Unilateral primary osteoarthritis, right hip (principal); R41.82 Altered mental status, unspecified
CPT/HCPCS: 36415; 80053; 81001; 85025; 86850; 87086; 87088; 87186; C9803; U0003; U0005

== ENCOUNTER 2021-06-23 08:52 | Inpatient (IN) | payer MEDICARE, MEDICAID, SELFPAY ==
--- NOTE | 2021-06-11 13:41 | SW/DCPLANNER ---
Addendum entered by [facility] 06/25/21 10:07: The plan for this patient is to discharge to [facility] level of care today. COVID swab has been collected and is negative. Patient is agreeable with discharge plan. Addendum entered by [facility] 06/24/21 16:02: Naye Huynh has stated that patient has been approved for admission tomorrow. Patient will require a COVID swab prior to discharge. Addendum entered by [facility] 06/24/21 10:52: Naye Huynh has stated that precert will be started on this patient today. Addendum entered by [facility] 06/24/21 09:34: Updated PT evaluation has been faxed to Naye Huynh. Addendum entered by [facility] 06/23/21 14:39: Naye Huynh is following this patient. I will fax information to Naye once available in computer. Addendum entered by [facility] 06/11/21 13:54: Patient demographic sheet has been faxed to Naye Huynh regarding benefits. Original Note: I spoke with this patient this AM regarding plans once medically stable after total hip replacement. Patient stated that she resides at home alone and anticipates discharging to SNF level of care at time of discharge. Patient stated that she has been in contact with Farhat Huynh and is interested in going to their facility once medically stable for discharge. I will follow up with [facility], and [facility] once patient is admitted to [facility].
[2021-06-20 10:38] VITALS: BMI 23.3
--- NOTE | 2021-06-21 13:37 | SUR.PREOP ---
This RN was contacted by Dr Pat at 1321. Dr Pat advised that the patient needed to have a prescription called into a pharmacy as [place] (her pharmacy of choice was closed, as was [facility]). pt ordered Bactrim DS 1 tablet by mouth BID for 3 days. no refills. pt contacted and requested to have medication called into [facility]. medication RX left on voicemail at [facility] pharmacy at [phone] r/t pharmacy being closed for lunch at this time.
[2021-06-23] VITALS (20 sets, daily range): BP systolic 108–143; BP diastolic 51–95; PULSE 52–102; RESP 15–18; TEMP 36.3–43; O2SAT 92–100; BMI 25.0
--- NOTE | 2021-06-23 07:05 | P.PN_ITS ---
[facility] Anesthesia Checklist - Patient Identification Patient Identification: Arm Band - Structural Data Admitted From: Home Planned Operative Procedure/s: FELIPA Consent for Planned Operative Procedure(s) Verified: Yes - NPO Status Verified Time NPO: 00:00 - Additional verifications Anesthesia Reactions: No Hx Blood Transfusions: No Blood Transfusion Reaction: No - Airway Assessment C-Spine Mobility Assessed: Yes TMJ Mobility Assessed: Yes Dentition: Poor Dentition - Neurological Assessment Level of Consciousness: Awake Hx Seizures: No Numbness or tingling in extremities: No - Anesthesia Plan Anesthesia Risk discussed: Yes Anesthesia Plan: Verified ASA Class: II Anesthesia Type: General [facility] History I have reviewed the patient's past medical history: Yes Medical History: Reports:: Anxiety, Cancer (skin, right ear), Carotid Stenosis, Chronic Obstructive Pulmonary Disease (COPD) Denies:: Diabetes Mellitus Type 1, Diabetes Mellitus Type 2, MRSA, Seizures *Have you ever received a pneumonia vaccine?: No *Have you received a flu vaccine this season?: Yes Other Medical History: Reports: Arthritis. Denies: Blood Transfusion Reaction Anesthesia experience/problems:: None Other Surgeries: Yes: Appendectomy, Amputation: No Fractures: Yes (left leg) - *Social History Last grade of school completed: Some college Smoking Status: Current every day smoker Tobacco Type: cigarettes # Packs/Day (cigarettes): 1 Alcohol Intake: never Substance Use Type: former substance user *Occupational Status:: retired Housing: house Household Members: spouse *Travel in the last 8 weeks: None Family Hx:: Coronary Artery Disease, Heart Attack
[2021-06-23 07:41] LABS: Coronavirus 19, PCR Not Detected (NotDetected); Influenza A, PCR Not Detected (NotDetected); Influenza B, PCR Not Detected (NotDetected)
--- NOTE | 2021-06-23 09:26 | HMH.PHAINT ---
MEDICATION RECONCILIATION COMPLETED ON PATIENT USING EXTERNAL FILL HISTORY FROM PHARMACY AND [facility] REPORT. -VALENTINO BENNETTD
--- NOTE | 2021-06-23 11:59 | SUR.OPER ---
[id number] irrigating pt's wound with betadine/normal saline solution for 3 minutes at this time
--- NOTE | 2021-06-23 13:04 | XR_ITS ---
FINAL REPORT CLINICAL HISTORY: postop COMPARISON: 06/04/2021 FINDINGS: RIGHT HIP 3 views were obtained. There are interval postoperative changes from right hip arthroplasty. Mild degenerative changes are seen in the left hip. There is moderate and severe degenerative change in the lower lumbar spine. IMPRESSION: Postoperative changes from right hip arthroplasty. Reviewed, Interpreted and Dictated by Mitchel Gates III, MD Transcribed by Jacquie King Authenticated by Mitchel Gates III, MD on 06/23/2021 01:59:55 PM [facility]
--- NOTE | 2021-06-23 13:05 | HMH.ANESI ---
[facility] Anesthesia Record Part I Intake, IV Amount: 550 Estimated blood loss (mL): 300 Urine output (mL): 0 Blood Pressure: 113/67 SaO2: 100 Pulse Rate: 101 Respiratory Rate: 15 Temperature: 97.4 F Patient is:: Awake Stable to PACU at:: 13:04
--- NOTE | 2021-06-23 14:19 | PC.NURSE ---
Pedal pulses palpable and strong, cap refill<3secs. Pt can move feet b/l
--- NOTE | 2021-06-23 14:21 | PC.NURSE ---
Pedal pulses palpable and strong b/l, cap refill<3 secs, pt can move feet b/l
--- NOTE | 2021-06-23 14:23 | PC.NURSE ---
PEDAL PULSES PALPABLE AND STRONG B/L, CAP REFILL <3SECONDS, PT CAN MOVE FEET B/L
--- NOTE | 2021-06-23 14:26 | PC.NURSE ---
PEDAL PULSES PALPABLE AND STRONG B/L, CAP REFILL <3SECONDS, PT CAN MOVE FEET B/L
--- NOTE | 2021-06-23 14:27 | PC.NURSE ---
PEDAL PULSES PALPABLE AND STRONG B/L, CAP REFILL <3SECONDS, PT CAN MOVE FEET B/L
--- NOTE | 2021-06-23 14:28 | PC.NURSE ---
XR COMPLETED AT BEDSIDE
--- NOTE | 2021-06-23 14:32 | HMH.OPNOTE ---
Date of procedure: 06/23/21 Pre-op Diagnosis:: Advanced degenerative arthritis, right hip Post-op Diagnosis:: Same Procedure performed:: Uncemented total hip arthroplasty, right Surgeon:: Curtis Pat MD [employer] Worker(s):: Isabel Malcolm PA-C THERAPIST ASST:: Ev Steve Anesthesia: spinal, LMA Estimated blood loss (mL): 300 Clinical Note:: Patient is a 70-year-old female with end-stage osteoarthritis of the right hip unresponsive to conservative management. The arthritis is causing severe pain and significant disability and has not responded well to conservative management. Her mobility, and quality of life is severely impacted. The pain is also affecting her lifestyle, activities of daily living and significantly impacting her sleep. Also she is at a high risk of falls from the arthritis. Therefore, a total hip arthroplasty is indicated to relieve pain and to reduce the disability and risk of falls. Please refer to my office note for full details. Operative findings:: Preoperative examination and x-ray findings were consistent with the above diagnosis. Intraoperatively, end-stage osteoarthritis of the hip joint is noted. The femoral head was arthritic, and osteophytes were noted on both the acetabular and the femoral side. The capsule/soft tissues are contracted and tight. The bone quality is good. Operative note:: On the day of the procedure the patient was met in the preoperative area and the patient was positively identified. A physical examination was performed and documented. The operative site was appropriately marked and initialed by me. I again reviewed the diagnosis, natural history and management options in detail including both nonsurgical and surgical. We discussed the proposed surgery, risks and benefits and alternatives in detail. The complications discussed include but are not limited to infection, bleeding, injury to nerves, blood vessels and tendons, DVT and PE, fracture, limb length inequality, dislocation, implant malpositioning, implant failure, squeaking, loosening, acetabular wear, osteolysis, periprosthetic femur fracture, heterotopic ossification, abductor weakness and limp, incomplete relief of pain, incomplete recovery of function, chronic pain, likely need for further surgery in future including revision, anesthetic complications including heart attack, stroke and even . We also discussed the postoperative recovery and rehabilitation. Patient verbalized a good understanding and wished to proceed with the proposed surgery. Patient understood the risks, agreed to proceed with surgery and no guarantees or assurances were given or implied. The patient was brought to the operating room and a spinal anesthesia was administered by the audiovisual lead technician. The patient was then positioned in the left lateral decubitus position with the right hip facing up. We used Wixon hip positioner for this. All the bony prominences were appropriately padded. The left hip was then prepped with isopropyl alcohol followed by chlorhexidine and draped in the usual sterile fashion. The entire operative team wore isolation suits, and the Operating Room traffic was controlled. The skin incision was marked for a posterior approach to the hip joint. The perineum and the operative site were sealed off with Ioban drape. A preprocedure timeout was performed as per hospital protocol identifying the patient, correct surgery, and correct site. Administration of prophylactic antibiotics (IV Ancef and vancomycin) was confirmed with the audiovisual lead technician. Before completion of the procedure 1 more gram of IV Ancef was administered as the operating time was over 2 hours. We have also administered IV tranexamic acid just before the incision and another dose at the end of the procedure, to reduce the jarrod-operative bleeding. A posterior approach was used to the right hip joint. The skin incision was made centering over the posterior part of the greater trochanter extending posteriorly in a
[2021-06-23 14:39] LABS: Microscopic,Cath URINE MICROSCOPIC (MICROSCOPIC)
--- NOTE | 2021-06-23 14:42 | HMH.ORTHHP ---
*Admission Date: 06/23/21 *Reason for consult:: s/p right total hip arthroplasty *History of present illness: Patient is a 70-year-old female admitted to the inpatient service today following an uneventful right total hip arthroplasty. She has had chronic right hip pain for many years that has gradually worsened over time. No known injury. She localizes her pain to the right hip/groin with radiation into her thigh. She states that she is having severe and constant right hip pain that she rates a 10 out of 10. She also reports feeling unsteady on her feet and is having daily sleep disturbances due to the pain. She states that she has fallen a few times due to weakness and sensation of her right leg giving out on her. Her pain is aggravated by walking and standing for prolonged periods of time. She reports that she cannot walk more than 100 yards at a time without stopping for rest. She also reports that she is having difficulty with her activities of daily living; she finds it difficult to put on her socks, care for her feet, and other simple tasks. Her pain has failed to respond satisfactorily to conservative management including NSAIDs, rest, ice, heat, and naproxen. She denies any history of back pain or distal tingling/numbness. 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 Her past medical history is significant for COPD, carotid stenosis, and arthritis. Total hip arthroplasty is indicated to reduce the risk of falls, and to improve her pain, mobility, and quality of life. Surgical and nonsurgical alternatives were discussed in detail with the patient as well as the risks and benefits of surgery. [facility] History Medical History: Reports:: Anxiety, Cancer (skin, right ear), Carotid Stenosis, Chronic Obstructive Pulmonary Disease (COPD) Denies:: Diabetes Mellitus Type 1, Diabetes Mellitus Type 2, MRSA, Seizures *Have you ever received a pneumonia vaccine?: No *Have you received a flu vaccine this season?: Yes Other Medical History: Reports: Arthritis. Denies: Blood Transfusion Reaction Anesthesia experience/problems:: None Other Surgeries: Yes: Appendectomy, Amputation: No Fractures: Yes (left leg) - *Social History Last grade of school completed: Some college Smoking Status: Current every day smoker Tobacco Type: cigarettes # Packs/Day (cigarettes): 1 Alcohol Intake: never Substance Use Type: former substance user *Occupational Status:: retired Housing: house Household Members: spouse *Travel in the last 8 weeks: None - Psychiatric History Pschychiatric History:: Reports:: Anxiety Family Hx:: Coronary Artery Disease, Heart Attack Review of Systems - Review of Systems Review of systems:: pertinent systems reviewed and negative unless documented below - Constitutional Denies anorexia, Denies body ache(s), Denies fatigue, Denies fever(s), Denies headache(s), Denies malaise, Denies weakness - Eyes Denies change in vision - ENT Denies dizziness, Denies headache(s), Denies nasal congestion, Denies neck pain, Denies sore throat, Denies throat swelling - *Cardiovascular Denies chest pain, Denies chest pain at rest, Denies shortness of breath, Denies shortness of breath with activity, Denies radiating jaw, neck or arm pain - *Respiratory Denies chest congestion, Denies cough, Denies shortness of breath, Denies pain on inspiration, Denies wheezing - *Gastrointestinal Denies abdominal pain, Denies change in bowel habits, Denies constipation, Denies loose stools, Denies black, tarry stools, Denies nausea, Denies vomiting - *Genitourinary Denies painful urination, Denies urinary incontinence, Denies urinary urgency - *Musculoskeletal Reports abnormal walking, Reports joint pain, Denies back pain, Denies neck pain, Denies numbness, Denies tingling - *Neurologic Denies abnormal speech, Denies seizure-like activity, Denies localized weakness, Denies frequent falls, Denies headache(s), Denies numbness, Denies radiating pain, De
[2021-06-23 15:10] LABS: Appearance,Urine/Cath CLEAR (Clear); Bilirubin,Cath Negative (Negative); Blood, Urine/Cath Negative (Negative); Color,Urine/Cath YELLOW (Yellow); Glucose,Urine/Cath (UA) Negative (Negative); Ketones,Urine/Cath 1+ (Negative); Leukocyte Esterase,Cath Negative (Negative); Nitrate,Cath Negative (Negative); Protein,Urine/Cath Negative (Negative); Urobilinogen,Cath 0.2 EU/dl (0.2)
--- NOTE | 2021-06-23 15:21 | HMH.PHAVTE ---
[facility] VTE Monitoring - Patient Demographics Admission date: 06/23/21 Report Date: 06/23/21 Time: 15:21 Allergies/Adverse Reactions: Patient Allergies No Known Allergies Allergy (Verified 06/04/21 15:28) Height: 1.65 m Weight: 68.181 kg Patient Problems: Current Active Problems S/P total right hip arthroplasty (Acute) - Prophylaxis VTE Prophylaxis Ordered?: Yes Types of VTE Prophylaxis: IPCS Thigh High Location of Applied Device: Bilateral Lower Extremeties
--- NOTE | 2021-06-23 18:58 | P.PN_ITS ---
[facility] Anesthesia Record Part II Discharge Time: 13:44 Destination: Second Floor PACU nurse assessment reviewed?: Yes Patient Condition:: Good Anesthesia Complications:: None Swallowing reflex intact?: Yes Cyanosis?: No Blood Pressure: 131/55 Pulse Rate: 86 Temperature: 97.7 F Mental Status: Alert & Oriented Pain level:: 5 Nausea and/or vomitting:: None Intake, IV Amount: 0
[2021-06-24 04:00] VITALS: BP 117/50; PULSE 77; RESP 18; TEMP 36.7; O2SAT 95
--- NOTE | 2021-06-24 04:00 | PC.NURSE ---
0400 NO CHANGES FROM PREVIOUS ASSESSMENT, PT STATES PO PAIN MEDS DO NOT CONTROL PAIN, PT MEDICATED WITH IV PAIN MEDS, VSS, DSG CDI, ABDUCTOR PILLOW IN PLACE, NO OTHER ISSUES NOTED.
[2021-06-24 05:00] VITALS: BMI 25.8
[2021-06-24 06:15] LABS: Basophils % 0.3 % (0.1-2.0); Eosinophils % 0.3 % (0.1-12.0); Hematocrit 33.1 % (37.0-47.0); Hemoglobin 10.4 g/dL (12.2-16.2); Lymphocytes # 1.2 K/mm3 (0.7-4.5); Lymphocytes % 14.2 % (10-50); Mean Corpuscular HGB Conc 31.6 g/dL (31.8-35.4); Mean Corpuscular Hemoglobin 27.5 pg (27.0-31.2); Mean Corpuscular Volume 87.1 fl (81-99); Mean Platelet Volume 8.7 fl (7.4-10.4); Monocytes # 0.7 K/mm3 (0.1-1.0); Monocytes % 7.8 % (1.7-9.3); Neutrophils # 6.5 K/mm3 (1.8-7.8); Neutrophils % 77.5 % (37.0-80.0); Platelet Count 327 K/mm3 (142-424); Red Cell Distribution Width 20.7 % (11.5-17.5); White Blood Count 8.4 K/mm3 (4.8-10.8)
[2021-06-24 06:48] LABS: Blood Urea Nitrogen 10 mg/dl (7-17); Calcium 8.4 mg/dl (8.4-10.2); Carbon Dioxide 27 mmol/L (22.0-30.0); Chloride 103 mmol/L (98-107); Creatinine Clearance Estimated 58 mL/min (50-200); Estimated Glomerular Filt Rate 122 ml/min (>60); GFR (African American) 148 ML/MIN (>60); Glucose 109 mg/dl (74-100); Sodium 132 mmol/L (136-145)
[2021-06-24 07:47] VITALS: BP 132/61; PULSE 88; RESP 20; TEMP 36.8; O2SAT 95
[2021-06-24 08:00] VITALS: O2SAT 95
--- NOTE | 2021-06-24 09:11 | HMH.PTEV ---
Physical Therapy Evaluation Rehab PT IP Evaluation Start: 06/23/21 14:21 Freq: ONCE Status: Active Protocol: Document 06/24/21 09:01 PHOJhonathanAMANDA (Rec: 06/24/21 09:10 PHORNE [id number]) Subjective/History History History 70 yowf adm to [facility] for R FELIPA secondary to OA. She reports she lives with someone, but did not elaborate as to who that is. She also reports no steps to enter the home and she uses a walker for ambulation at baseline. Subjective Subjective Pt c/o pain in R hip at rest, 10/18 this am. I didn't have no idea it would hurt this bad ! Rehab PT IP Eval Objective Appearance Patient Behavior Appropriate,Anxious,Wandering Patient Orientation Person,Place,Time,Name, Birthday Difficulty following instructions none Speech Pattern Clear,Rambling Ambulation Patient Able to Ambulate Yes Ambulation Observation IP General Gait Pattern Observation Antalgic Gait Ambulation Distance (feet) 10 Ambulation Assistive Device Rolling Walker Ambulation Ability Contact Guard/Hand Hold Balance Ability to Arise Able, uses arms to help Sitting Balance Steady, safe Standing Balance Steady, wide stance Dynamic Sitting Balance Ability Good Dynamic Standing Balance Ability Fair Transfers Bed Transfer Ability Contact Guard/Hand Hold Chair Transfer Ability Contact Guard/Hand Hold Sit to Stand Bed Transfer Ability Contact Guard/Hand Hold Sit to Stand Chair Transfer Ability Contact Guard/Hand Hold Rehab PT IP prob,goals,plan Problems Date of Evaluation: 06/24/21 PT IP Problems Bed Mobility,Transfers,Gait Rehab Potential Rehab Potential Good Plan PT Intervention Plan Bed Mobility,Transfers,Gait, Self care,Therapeutic Exercise PT Plan Frequency BID Duration LOS Discharge Goals Bed Transfer Ability Supervision/Stand by Sit to Stand Chair Transfer Ability Supervision/Stand by Ambulation Assistive Device Rolling Walker Ambulation Distance (feet) 30 Discharge Plan PT Discharge Plan Pt is currently most appropriate for rehab placement once medically stable. G -code Required No Eval Complexity Eval Charge Codes 97452 - Moderate Complexity
--- NOTE | 2021-06-24 09:20 | HMH.ORTHPN ---
Subjective Date: 06/24/21 Time: 08:40 Principal diagnosis: s/p right total hip arthroplasty Interval history: Patient is a 70-year-old female who underwent an uneventful right total hip arthroplasty yesterday 06/23/2021. Today she is postop day 1. This morning the patient is sitting comfortably in a chair at the bedside. She states that she has some pain in her right hip as to be expected, but states that it is well controlled with as needed pain medication. She reports that she has been drinking well but has not had much of an appetite. She was able to get out of bed and ambulate a short distance to the bedside chair this morning with the assistance of physical therapy and states that this went well. She denies any history of fevers, chills, rigors, or distal tingling/numbness. She denies any other symptoms or concerns at this time. PN: Obj Ex Vital signs: Temp Pulse Resp BP Pulse Ox 98.2 F 88 20 132/61 95 06/24/21 07:47 06/24/21 07:47 06/24/21 07:47 06/24/21 07:47 06/24/21 07:47 - Constitutional no acute distress, cooperative - Routine HEENT Exam Head: Present: normocephalic, atraumatic Eye: Present: EOMI, PERRL ENT: Present: mucous membranes moist - Routine Neck Exam Present: supple, full ROM, trachea midline. Absent: JVD, lymphadenopathy - Routine Respiratory Exam Absent: accessory muscle use, respiratory distress Comments: Symmetric chest movement, able to speak in complete sentences - Routine Cardiovascular Exam Present: RRR Comments: Normal peripheral pulses - Routine Abdominal Exam Present: soft. Absent: tenderness - Routine Extremities Exam Comments: Upon examination of the lower extremities: The limb lengths are equal. Dressings present over the right hip are clean, dry, and intact. No evidence of drainage or bleeding noted. Attempted movements of the right hip are somewhat painful. Thigh and calf are soft and nontender; Homans' sign is negative. No clinical evidence of DVT noted. Posterior tibial pulses 1+; capillary refill is brisk. Sensation to light touch is grossly intact throughout. Patient is actively mobilizing the foot, ankle, and toes. - Routine Skin Exam Present: intact, warm, normal turgor. Absent: cyanosis, erythema, lesions, jaundice - Routine Neurological Exam Present: alert, oriented X3, CN II-XII intact, moving all extremities, normal tone, normal speech. Absent: sensory deficit, motor deficit, altered mental status - Routine Psychiatric Exam Present: normal affect, cooperative Progress Note: A&P (1) S/P total right hip arthroplasty Status: Acute Assessment and Plan for All Diagnoses:: I have discussed the clinical findings and progress with the patient. Overall she is doing well from an orthopedic standpoint this morning. Dressings present over the right hip are clean, dry, and intact. Plan to continue PT/OT today; patient may ambulate weightbearing as tolerated on the right lower extremity. Continue standard precautions for a posterior approach to the hip. Plan to discontinue urinary catheter and IV fluids today as the patient is drinking well. Continue DVT prophylaxis for 6 weeks postoperatively. Continue use of the abduction wedge when lying down/sleeping for 6 weeks postoperatively. Continue rest, ice, elevation, activity modification, and pain medication as needed. All questions were answered and the patient verbalized a good understanding. Case management team coordinating discharge planning; at this time patient is planning on being discharged to a nursing facility for short-term rehabilitation. Continue home medications as ordered.
--- NOTE | 2021-06-24 09:44 | HMH.OTEV ---
OT Inpatient Evaluation Rehab OT IP Evaluation Start: 06/23/21 14:21 Freq: ONCE Status: Complete Protocol: Document 06/24/21 09:23 DEBBIE (Rec: 06/24/21 09:43 MERCEDLAZARO [id number]) Rehab OT IP Assessment Subjective History Patient is a 70-year-old female admitted to the inpatient service today following an uneventful right total hip arthroplasty. She has had chronic right hip pain for many years that has gradually worsened over time. No known injury. She localizes her pain to the right hip/groin with radiation into her thigh. She states that she is having severe and constant right hip pain that she rates a 10 out of 10. She also reports feeling unsteady on her feet and is having daily sleep disturbances due to the pain. She states that she has fallen a few times due to weakness and sensation of her right leg giving out on her. Her pain is aggravated by walking and standing for prolonged periods of time. She reports that she cannot walk more than 100 yards at a time without stopping for rest . She also reports that she is having difficulty with her activities of daily living; she finds it difficult to put on her socks, care for her feet, and other simple tasks. Her pain has failed to respond satisfactorily to conservative management including NSAIDs, rest, ice, heat, and naproxen. She denies any history of back pain or distal tingling/ numbness. 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 Her past medical history is significant for COPD, carotid stenosis, and arthritis.
[2021-06-24 12:00] VITALS: BP 128/64; PULSE 109; RESP 16; TEMP 36.7; O2SAT 94
[2021-06-24 16:00] VITALS: BP 139/67; PULSE 83; RESP 16; TEMP 36.8; O2SAT 92
[2021-06-24 20:00] VITALS: BP 126/50; PULSE 107; RESP 18; TEMP 36.7; O2SAT 96
[2021-06-25 04:00] VITALS: BP 130/82; PULSE 80; RESP 18; TEMP 36.7; O2SAT 98
[2021-06-25 05:00] VITALS: BMI 25.5
--- NOTE | 2021-06-25 05:26 | PC.NURSE ---
No acute changes. Pt stanley c/o pain 2x thus far. PRN pain medication administered per MAR, pt states favorable results. Call light within reach.
[2021-06-25 06:35] VITALS: O2SAT 99
[2021-06-25 08:00] VITALS: BP 109/57; PULSE 78; RESP 22; TEMP 37; O2SAT 96
--- NOTE | 2021-06-25 08:48 | HMH.DCSUM ---
General - General Admission date:: 06/23/21 <Curtis Pat - 06/25/21 11:31> 06/23/21 <YunIsabel - 06/25/21 08:48> Discharge date: 06/25/21 <MalcolmIsabel odonnell - 06/25/21 08:48> HPI HPI: Patient is a 70-year-old female admitted to the inpatient service today following an uneventful right total hip arthroplasty. She has had chronic right hip pain for many years that has gradually worsened over time. No known injury. She localizes her pain to the right hip/groin with radiation into her thigh. She states that she is having severe and constant right hip pain that she rates a 10 out of 10. She also reports feeling unsteady on her feet and is having daily sleep disturbances due to the pain. She states that she has fallen a few times due to weakness and sensation of her right leg giving out on her. Her pain is aggravated by walking and standing for prolonged periods of time. She reports that she cannot walk more than 100 yards at a time without stopping for rest. She also reports that she is having difficulty with her activities of daily living; she finds it difficult to put on her socks, care for her feet, and other simple tasks. Her pain has failed to respond satisfactorily to conservative management including NSAIDs, rest, ice, heat, and naproxen. She denies any history of back pain or distal tingling/numbness. 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 Her past medical history is significant for COPD, carotid stenosis, and arthritis. Total hip arthroplasty is indicated to reduce the risk of falls, and to improve her pain, mobility, and quality of life. Surgical and nonsurgical alternatives were discussed in detail with the patient as well as the risks and benefits of surgery. <YunIsabel - 06/25/21 09:03> Hospital Course Hospital Course: Following an uncomplicated primary right total hip arthroplasty the patient was admitted to the inpatient service and has progressed well. Her postoperative check x-ray was satisfactory with good alignment and fixation of the orthopedic components. She was advised to ambulate weightbearing as tolerated on her right side. The patient managed this very well using the walker. Her pain is well controlled with oral analgesics. She is eating and drinking well without any difficulty. The patient is medically stable at the time of discharge and was medically cleared for discharge by Dr. Pat and also by physical therapy. Her surgical dressings were changed on the second postoperative day and the surgical incision is healing well. No evidence of erythema, induration, purulent discharge, bleeding, or other signs of infection. Distal neurovascular status intact and there is no clinical evidence of DVT. The patient was started on aspirin 325 mg daily for DVT prophylaxis after surgery. Her vital signs have been stable throughout her admission and she is afebrile at the time of discharge. She is being discharged to [facility] for postoperative rehabilitation. <Isabel Malcolm - 06/25/21 09:03> Objective Vital signs: Temp Pulse Resp BP Pulse Ox 98.6 F 78 22 109/57 L 96 06/25/21 08:00 06/25/21 08:00 06/25/21 08:00 06/25/21 08:00 06/25/21 08:00 <Curtis Pat Post - 06/25/21 11:31> Temp Pulse Resp BP Pulse Ox 98.1 F 80 18 130/82 99 06/25/21 04:00 06/25/21 04:00 06/25/21 04:00 06/25/21 04:00 06/25/21 06:35 <Isabel Malcolm - 06/25/21 08:48> no acute distress, cooperative <Isabel Malcolm 06/25/21 09:03> - *Routine HEENT Exam Head: Present: normocephalic, atraumatic <Isabel Malcolm 06/25/21 09:03> Eye: Present: EOMI, PERRL <Isabel Malcolm 06/25/21 09:03> ENT: Present: mucous membranes moist <Isabel Malcolm 06/25/21 09:03> - *Routine Neck Exam Present: supple, full ROM, trachea midline. Absent: JVD, lymphadenopathy <Isabel Malcolm 06/25/21 09:03> - *Routine Respiratory Exam Absent: accesso
[2021-06-25 08:56] LABS: Coronavirus 19, PCR Not Detected (NotDetected); Influenza A, PCR Not Detected (NotDetected); Influenza B, PCR Not Detected (NotDetected)
--- NOTE | 2021-06-25 12:16 | PC.NURSE ---
REPORT CALLED TO [place] AT [facility] AT 11:39 BY Jada JOYA RN
--- NOTE | 2021-06-26 14:22 | CARE MANAGER ---
Contacted Farhat Huynh to follow up on patient related to discharge from hospital. Nurse states patient is doing well and has no questions or concerns.
== END 2021-06-25 12:10 | DRG 470 ==
LOC: OB 08:52 → 2ND 13:29
PROVIDERS: Admitting Provider Orthopaedic Surgery; PCP Family Medicine; Visit Provider Orthopaedic Surgery
PROC: (CPT 27130; principal; 2021-06-23 09:00)
DX: M16.11 Unilateral primary osteoarthritis, right hip (principal); J44.9 Chronic obstructive pulmonary disease, unspecified; I65.29 Occlusion and stenosis of unspecified carotid artery; F41.9 Anxiety disorder, unspecified; Z85.828 Personal history of other malignant neoplasm of skin
CPT/HCPCS: 27130; 36415; 73502; 80048; 80053; 81001; 85025; 86850; 87086; 87088; 87186; 94640; 97110; 97116; 97162; 97165; C1713; C1776; C9803; J2405; U0003; U0005

== ENCOUNTER → 2021-07-08 12:48 | Outpatient (CLI) | payer MEDICARE, MEDICAID, SELFPAY ==
--- NOTE | 2021-07-08 12:59 | XR_ITS ---
FINAL REPORT CLINICAL HISTORY: rt total hip sp 06/23/2021 COMPARISON: June 23, 2021 FINDINGS: 2 views of the right hip with an AP pelvis were obtained. There is a new fracture at the superior aspect of the right greater trochanter with up to 7 mm of distraction. There is a stable calcification adjacent to the superolateral acetabulum. There are postoperative changes of right hip arthroplasty. There are vascular calcifications. IMPRESSION: Fracture at the superior aspect of the right greater trochanter, new. Dhara in radiology was notified at 2:25 p.m. on 07/08/21 with these findings. Reviewed, Interpreted and Dictated by Mitchel Gates III, MD Transcribed by Pérez Hidalgo Authenticated by Mitchel Gates III, MD on 07/08/2021 02:32:08 PM [facility]
== END ==
PROVIDERS: PCP Family Medicine; Visit Provider Orthopaedic Surgery
DX: G89.29 Other chronic pain (principal); M25.551 Pain in right hip
CPT/HCPCS: 73502

== ENCOUNTER → 2021-07-21 08:08 | Outpatient (CLI) | payer MEDICARE, MEDICAID, SELFPAY ==
--- NOTE | 2021-07-21 08:11 | XR_ITS ---
FINAL REPORT CLINICAL HISTORY: s/p Rt FELIPA 06/23/2021 COMPARISON: July 08, 2021 FINDINGS: RIGHT HIP Three views including an AP pelvis were obtained. There are postoperative changes from right hip arthroplasty. There is a presumed chronic fracture fragment at the superior aspect of the greater trochanter with interval mild proximal displacement. There is a stable calcification adjacent to the right acetabulum. There is vascular calcification. There are degenerative changes of the spine in the left hip. IMPRESSION: Presumed chronic fracture fragment at the superior aspect of the greater trochanter with interval mild proximal displacement. Reviewed, Interpreted and Dictated by Mitchel Gates III, MD Transcribed by Yaneli Wilson Authenticated and [facility]
== END ==
PROVIDERS: PCP Family Medicine; Visit Provider Orthopaedic Surgery
DX: Z96.641 Presence of right artificial hip joint (principal); M25.551 Pain in right hip
CPT/HCPCS: 73502

== ENCOUNTER → 2021-08-19 10:17 | Outpatient (CLI) | payer MEDICARE, MEDICAID, SELFPAY ==
--- NOTE | 2021-08-19 10:40 | XR_ITS ---
FINAL REPORT CLINICAL HISTORY: S/P FELIPA, post op COMPARISON: 07/21/2021 FINDINGS: RIGHT HIP Two views of the right hip demonstrate total hip prosthesis in anatomic alignment. The superior portion of the greater trochanter exists as a free fragment measuring 3.0 cm. There is moderate hypertrophic change of the lower lumbar spine. No soft tissue abnormality is seen. IMPRESSION: No significant change from the prior examination. Reviewed, Interpreted and Dictated by Yang Still MD Transcribed by Yaneli Wilson Authenticated and . [facility]
== END ==
PROVIDERS: PCP Family Medicine; Visit Provider Orthopaedic Surgery
DX: Z09 Encounter for follow-up examination after completed treatment for conditions other than malignant neoplasm (principal); M25.551 Pain in right hip
CPT/HCPCS: 73502